=== PATIENT | male | born 1965 | race Caucasian/White ===

== ENCOUNTER 2023-11-08 15:15 | Inpatient (IN) | payer OTHER, MEDICAID, SELFPAY ==
[2023-11-08] VITALS (15 sets, daily range): BP systolic 131–171; BP diastolic 81–87; PULSE 56–96; RESP 16–18; TEMP 36.6–36.9; O2SAT 98–100; BMI 22.5
--- NOTE | 2023-11-08 | DI.RAD.S_ITS ---
PROCEDURE: XR FEMUR LT MIN 2V INDICATIONS: Evaluate full length of femur following hip fracture TECHNIQUE: 2 views of the femur were acquired. COMPARISON: [facility], AISHA, XR HIP W PEL IF DONE LT 2V, 11/08/2023, 15:29. FINDINGS: Bones: Nondisplaced intertrochanteric fracture of the left proximal femur again seen. The remainder of the femur appears to be intact. Soft tissues: No suspicious soft tissue calcifications or masses. IMPRESSION: Nondisplaced intertrochanteric fracture of the left proximal femur. Approved by: Kem Gonzalez M.D. on 11/08/2023 at 19:43
--- NOTE | 2023-11-08 15:22 | DI.RAD.S_ITS ---
PROCEDURE: XR HIP W PEL IF DONE LT 2V INDICATIONS: fall TECHNIQUE: AP pelvis with lateral view(s) of the left hip(s). COMPARISON: None. FINDINGS: Bones: No acute displaced fracture. Suspected nondisplaced intertrochanteric hip fracture. Soft tissues: Pelvic clips. Indeterminate hyperdensities project over lower pelvis/lower extremities. IMPRESSION: Suspected nondisplaced intertrochanteric hip fracture. Dictated by: Jerry Carlton M.D. on 11/08/2023 at 16:33 Approved by: Jerry Carlton M.D. on 11/08/2023 at 16:34
[2023-11-08] MEDS: ACETAMINOPHEN 325 MG TABLET 975 MG PO (16:28)
[2023-11-08 17:11] LABS: Add Manual Diff / Slide Review NO; Basophils Absolute Auto 100 /uL (0-100); Basophils Percent Auto 0.8 % (0-2); Eosinophils Absolute Auto 100 /uL (0-450); Eosinophils Percent Auto 1.2 % (2-4); Hematocrit 39.9 % (41-53); Hemoglobin 13.3 g/dL (13.5-17.5); Lymphocytes Absolute Auto 800 /uL (1100-4500); Lymphocytes Percent Auto 10.6 % (25-40); Mean Corpuscular HGB Conc 33.3 % (30-36); Mean Corpuscular Hemoglobin 34.4 PG (26-34); Mean Corpuscular Volume 103.4 fL (80-100); Monocytes Absolute Auto 500 /uL (0-900); Monocytes Percent Auto 6.7 % (3-14); Neutrophils Absolute Auto 6100 /uL (1500-7000); Neutrophils Percent Auto 80.7 % (50-75); Platelet Count 212 X10^3/uL (150-400); Red Blood Cell Count 3.86 X10^6/uL (4.5-5.9); Red Cell Distribution Width 14.2 % (11.6-14.8); White Blood Cell Count 7.6 X10^3/uL (4.5-11.0)
--- NOTE | 2023-11-08 17:19 | ED_ITS ---
HPI - Extremity Injury (Lower) General Chief Complaint: Extremity Injury, Lower Stated Complaint: Fall, L Hip Pain Time Seen by Provider: 11/08/23 16:55 Source: patient Mode of arrival: Ambulatory History of Present Illness HPI Narrative: Patient 58-year-old male without known medical history presenting today after fall off ladder. He reports that he was up on a ladder about 5-6 feet with a hose when he fell landing on his left side. He does have some facial contusions but no significant swelling denies hitting his head loss of conscious nausea or vomiting. Not on antiplatelet or anticoagulation medication. Really complaining of some left hip pain unable to bear weight. Denies any knee pain. No chest pain or other injuries. Related Data Home Medications Medication Instructions Recorded Confirmed No Known Home Medications 11/08/23 11/08/23 Allergies Allergy/AdvReac Type Severity Reaction Status Date / Time No Known Allergies Allergy Uncoded 11/08/23 15:21 Patient History Social History Smoking Status: Current every day smoker Smoking Status: Current every day smoker alcohol intake frequency: 0-2 drinks per day Alcohol type: beer Substance Use Type: marijuana Exam Initial Vital Signs Initial Vital Signs: Vital Signs Temperature 98 F 11/08/23 15:17 Pulse Rate 96 H 11/08/23 15:17 Respiratory Rate 18 11/08/23 15:17 Blood Pressure 143/87 H 11/08/23 15:17 Pulse Oximetry 98 11/08/23 15:17 Oxygen Delivery Method Room Air 11/08/23 15:17 GENERAL: [Well-appearing, well-nourished] and in [no acute] distress. HEENT: Head atraumatic,EOMI, pupils reactive, face symmetric, [moist] mucous membranes CARDIOVASCULAR: Regular rate and rhythm without murmurs, rubs or gallops. RESPIRATORY: Breath sounds equal bilaterally, no wheezes rales or rhonchi. ABDOMEN: Soft, nontender. Normoactive bowel sounds all 4 quadrants. No guarding or rebound. EXTREMITIES: Normal range of motion, no clubbing or edema. Neurovascularly intact NEUROLOGICAL: Alert and oriented x4.Normal gait and speech. Cranial nerves II through XII grossly intact. [Good [id number], good [id number], strength equal bilaterally, no dysarthria or aphasia, sensation in tact to soft touch bilaterally, no visual changes, no facial droop] SKIN: Warm, dry, no laceration, no petechiae, no rashes or lesions. Course Orders Ordered: ED Orders 11/08/23 15:22 XR hip w pel if done LT 2V Stat 11/08/23 17:00 Complete Blood Count AUTO DIFF Stat Comprehensive Metabolic Panel Stat PTT Partial Thromboplastin Dimas Stat Prothrombin Time INR Stat Type and Screen Stat 11/08/23 17:39 CT cervical spine wo con Stat CT head/brain wo con Stat Chest [XR chest 1V] Stat Discontinued Medications Acetaminophen (Acetaminophen 325 Mg Tablet) 975 mg PO NOW ONE Stop: 11/08/23 16:25 Last Admin: 11/08/23 16:28 Dose: 975 mg Documented By: Hydromorphone HCl (Hydromorphone 0.5 Mg Inj) 0.5 mg IV NOW ONE Stop: 11/08/23 16:56 Last Admin: 11/08/23 18:07 Dose: 0.5 mg Documented By: Vital Signs Vital signs: Vital Signs - 8 hr 11/08/23 15:17 11/08/23 16:01 11/08/23 16:02 Temperature 98 F Pulse Rate 96 H Respiratory Rate 18 Blood Pressure 143/87 H 142/85 H Pulse Oximetry 98 99 Oxygen Delivery Method Room Air 11/08/23 16:02 11/08/23 16:30 11/08/23 16:30 Temperature Pulse Rate 75 64 Respiratory Rate Blood Pressure 146/81 H Pulse Oximetry 100 100 Oxygen Delivery Method 11/08/23 17:00 11/08/23 17:01 11/08/23 17:01 Temperature Pulse Rate 65 76 Respiratory Rate Blood Pressure 159/86 H Pulse Oximetry 100 100 Oxygen Delivery Method 11/08/23 17:30 11/08/23 17:30 11/08/23 18:00 Temperature Pulse Rate 62 78 Respiratory Rate Blood Pressure 131/83 Pulse Oximetry 99 100 Oxygen Delivery Method 11/08/23 18:30 Temperature Pulse Rate 69 Respiratory Rate Blood Pressure Pulse Oximetry 99 Oxygen Delivery Method MDM - Extremity Injury (Lower) Lab Data 11/08/23 17:00 11/08/23 17:00 Labs: Lab Results 11/08/23 Range/Units 17:00 WBC 7.6 (4.5-11.0) X10^3/uL RBC 3.86 L (4.5-5.9) X10^6/uL Hgb 13.3 L (13.5-17.5) g/dL Hct 39.9 L (41-53) % MCV 103.4 H (80-100) fL MCH 34.4 H (26-34) PG MCHC 33.3 (30-36) % RDW 14.2 (11.6-14.8) % Plt Count 212 (150-400) X10^3/uL Neut % (Auto) 80.7 H (50-75) % Lymph % (Auto) 10.6 L (25-40) % [place] % (Auto) 6.7 (3-14) % Eos % (Auto) 1.2 L (2-4) % Baso % (Auto) 0.8 (0-2) % Neut # (Auto) 6100 (9130-0407) /uL Lymph # (Auto) 800 L (1566-3875) /uL [place] # (Auto) 500 (0-900) /uL Eos # (Auto) 100 (0-450) /uL Baso # (Auto) 100 (0-100) /uL PT 10.2 (9.4-12.5) SECONDS INR 0.9 (0.9-1.3) APTT 34 (25.1-36.5) SECONDS Sodium 141 (137-145) mmol/L Potassium 4.0 (3.4-5.1) mmol/L Chloride 108 H (98-107) mmol/L Carbon Dioxide 20 L (22-32) mmol/L BUN 6 L (9-20) mg/dL Creatinine 0.77 (0.66-1.25) mg/dL Estimated GFR > 60 (>60) mL/min BUN/Creatinine Ratio 7.8 (6-22) Glucose 87 (70-100) mg/dL Calcium 8.8 (8.4-10.2) mg/dL Total Bilirubin 0.5 (0.2-1.3) mg/dL AST 43 (17-59) IU/L ALT 27 (<50) IU/L Alkaline Phosphatase 39 (38-126) U/L Total Protein 6.8 (6.3-8.2) g/dL Albumin 4.5 (3.5-5.0) g/dL Globulin 2.3 (1.7-4.1) g/dL Albumin/Globulin Ratio 2.0 (1.0-2.8) Blood Type O Positive Antibody Screen Negative Imaging Data CT scan - head: Radiologist's Impression: PROCEDURE: CT HEAD/BRAIN WO CON INDICATIONS: fall off ladder TECHNIQUE: Noncontrast 4.5 mm thick angled axial sections acquired from the foramen magnum to the vertex, with coronal and sagittal reformats. For radiation dose reduction, the following was used: automated exposure control, adjustment of mA and/or kV according to patient size. COMPARISON: None. FINDINGS: Image quality: Diagnostic. CSF spaces: Basal cisterns are patent. No extra-axial fluid collections. The ventricles are symmetric in size and shape. Brain: No acute intracranial hemorrhage or mass effect. There is cerebral volume loss for age, with resultant ventricular and sulcal prominence. There are periventricular and deep white matter chronic small vessel ischemic changes. There is intracranial internal carotid artery atherosclerosis. Skull and face: Calvarium and visualized facial bones appear intact, without suspicious lesions. Sinuses: Visualized sinuses and mastoids are clear. IMPRESSION: No acute intracranial pathology. Approved by: Kem Gonzalez M.D. on 11/08/2023 at 18:38 CT - cervical spine: Radiologist's Impression: PROCEDURE: CT CERVICAL SPINE WO CON INDICATIONS: fall off ladder TECHNIQUE: Noncontrast 3 mm thick sections acquired from the skull base to the T4 level. Sagittal and coronal reformats were then constructed. For radiation dose reduction, the following was used: automated exposure control, adjustment of mA and/or kV according to patient size. COMPARISON: None. FINDINGS: Image quality: Excellent. Bones: No acute fractures or dislocations. Visualized superior ribs are intact. Moderate multilevel degenerative changes in the cervical spine with mild reversal of the normal cervical lordosis. Soft tissues: Prevertebral soft tissues are normal in thickness. No paravertebral hematomas. No apical pneumothoraces. Mild centrilobular emphysema. IMPRESSION: No acute displaced fracture or traumatic subluxation. Moderate multilevel spondylosis. Approved by: Kem Gonzalez M.D. on 11/08/2023 at 18:42 Extremity x-ray #1: Radiologist's Impression: PROCEDURE: XR HIP W PEL IF DONE LT 2V INDICATIONS: fall TECHNIQUE: AP pelvis with lateral view(s) of the left hip(s). COMPARISON: None. FINDINGS: Bones: No acute displaced fracture. Suspected nondisplaced intertrochanteric hip fracture. Soft tissues: Pelvic clips. Indeterminate hyperdensities project over lower pelvis/lower extremities. IMPRESSION: Suspected nondisplaced intertrochanteric hip fracture. Dictated by: Jerry Carlton M.D. on 11/08/2023 at 16:33 Chest x-ray: Radiologist's Impression: PROCEDURE: XR CHEST 1V INDICATIONS: fall off ladder TECHNIQUE: One view of the chest was acquired. COMPARISON: [facility], CHEST 2 VIEW, 06/20/2013, 15:50. FINDINGS: Surgical changes and devices: None. Lungs and pleura: Lungs are clear. No pleural effusions or pneumothorax. Mediastinum: Mediastinal contours appear normal. Heart size is normal. Bones and chest wall: No suspicious bony lesions. Overlying soft tissues appear unremarkable. IMPRESSION: No acute cardiopulmonary abnormality is seen. Approved by: Kem Gonzalez M.D. on 11/08/2023 at 19:07 [facility] Narrative Medical decision making narrative: Patient healthy 58-year-old male who had a traumatic fall 5-6 feet off a ladder found to have an intertrochanteric left femur fracture. Other imaging has also been reviewed including head CT cervical spine CT chest x-ray no other acute processes. Chest x-ray does not show any sort of pneumothorax On exam patient does have pain in his left hip , couple contusions on his left cheek as well but no significant swelling or facial lacerations or trauma. Blood work has been reviewed no acute abnormalities Dr. Villagomez updated on patient's symptoms test results will likely go to OR tomorrow 1850 Dr. Tinsley updated on trauma consultation ring regards to fall Dr. Ennis accepts patient Discharge Plan Departure Patient Disposition: Admitted As Inpatient Clinical Impression: Closed hip fracture Admit Date/Time: 11/08/23 18:56 Admit Provider: Stephen Ennis
[2023-11-08 17:21] LABS: INR 0.9 (0.9-1.3); Prothrombin Time 10.2 SECONDS (9.4-12.5)
[2023-11-08 17:23] LABS: PTT Partial Thromboplastin Tim 34 SECONDS (25.1-36.5)
[2023-11-08 17:26] LABS: Alanine Aminotransferase 27 IU/L (<50); Albumin 4.5 g/dL (3.5-5.0); Alkaline Phosphatase 39 U/L (38-126); Aspartate Aminotransferase 43 IU/L (17-59); BUN Creatinine Ratio 7.8 (6-22); Bilirubin Total 0.5 mg/dL (0.2-1.3); Blood Urea Nitrogen 6 mg/dL (9-20); Calcium 8.8 mg/dL (8.4-10.2); Carbon Dioxide 20 mmol/L (22-32); Chloride 108 mmol/L (98-107); Estimated Glomerular Filt Rate > 60 mL/min (>60); Globulin 2.3 g/dL (1.7-4.1); Glucose 87 mg/dL (70-100); HEMOLYSIS 21 (0-50); Sodium 141 mmol/L (137-145); Total Protein 6.8 g/dL (6.3-8.2)
--- NOTE | 2023-11-08 17:39 | DI.CT.S_ITS ---
PROCEDURE: CT CERVICAL SPINE WO CON INDICATIONS: fall off ladder TECHNIQUE: Noncontrast 3 mm thick sections acquired from the skull base to the T4 level. Sagittal and coronal reformats were then constructed. For radiation dose reduction, the following was used: automated exposure control, adjustment of mA and/or kV according to patient size. COMPARISON: None. FINDINGS: Image quality: Excellent. Bones: No acute fractures or dislocations. Visualized superior ribs are intact. Moderate multilevel degenerative changes in the cervical spine with mild reversal of the normal cervical lordosis. Soft tissues: Prevertebral soft tissues are normal in thickness. No paravertebral hematomas. No apical pneumothoraces. Mild centrilobular emphysema. IMPRESSION: No acute displaced fracture or traumatic subluxation. Moderate multilevel spondylosis. Approved by: Kem Gonzalez M.D. on 11/08/2023 at 18:42
--- NOTE | 2023-11-08 17:39 | DI.CT.S_ITS ---
PROCEDURE: CT HEAD/BRAIN WO CON INDICATIONS: fall off ladder TECHNIQUE: Noncontrast 4.5 mm thick angled axial sections acquired from the foramen magnum to the vertex, with coronal and sagittal reformats. For radiation dose reduction, the following was used: automated exposure control, adjustment of mA and/or kV according to patient size. COMPARISON: None. FINDINGS: Image quality: Diagnostic. CSF spaces: Basal cisterns are patent. No extra-axial fluid collections. The ventricles are symmetric in size and shape. Brain: No acute intracranial hemorrhage or mass effect. There is cerebral volume loss for age, with resultant ventricular and sulcal prominence. There are periventricular and deep white matter chronic small vessel ischemic changes. There is intracranial internal carotid artery atherosclerosis. Skull and face: Calvarium and visualized facial bones appear intact, without suspicious lesions. Sinuses: Visualized sinuses and mastoids are clear. IMPRESSION: No acute intracranial pathology. Approved by: Kem Gonzalez M.D. on 11/08/2023 at 18:38
--- NOTE | 2023-11-08 17:39 | DI.RAD.S_ITS ---
PROCEDURE: XR CHEST 1V INDICATIONS: fall off ladder TECHNIQUE: One view of the chest was acquired. COMPARISON: [facility], , CHEST 2 VIEW, 06/20/2013, 15:50. FINDINGS: Surgical changes and devices: None. Lungs and pleura: Lungs are clear. No pleural effusions or pneumothorax. Mediastinum: Mediastinal contours appear normal. Heart size is normal. Bones and chest wall: No suspicious bony lesions. Overlying soft tissues appear unremarkable. IMPRESSION: No acute cardiopulmonary abnormality is seen. Approved by: Kem Gonzalez M.D. on 11/08/2023 at 19:07
[2023-11-08] MEDS: HYDROMORPHONE 0.5 MG INJ IV ×4 (18:07→22:19)
--- NOTE | 2023-11-08 20:45 | ED.LOWEXIN ---
HPI - Extremity Injury (Lower) General Chief Complaint: Extremity Injury, Lower Stated Complaint: Fall, L Hip Pain Time Seen by Provider: 11/08/23 17:15 Source: patient Mode of arrival: Ambulatory Related Data Home Medications Medication Instructions Recorded Confirmed No Known Home Medications 11/08/23 11/08/23 Allergies Allergy/AdvReac Type Severity Reaction Status Date / Time No Known Allergies Allergy Uncoded 11/08/23 15:21 Patient History Social History Smoking Status: Current every day smoker Smoking Status: Current every day smoker alcohol intake frequency: 0-2 drinks per day Alcohol type: beer Substance Use Type: marijuana Exam Initial Vital Signs Initial Vital Signs: Vital Signs Temperature 98 F 11/08/23 15:17 Pulse Rate 96 H 11/08/23 15:17 Respiratory Rate 18 11/08/23 15:17 Blood Pressure 143/87 H 11/08/23 15:17 Pulse Oximetry 98 11/08/23 15:17 Oxygen Delivery Method Room Air 11/08/23 15:17 Course Orders Ordered: ED Orders 11/08/23 15:22 XR hip w pel if done LT 2V Stat 11/08/23 17:00 Complete Blood Count AUTO DIFF Stat Comprehensive Metabolic Panel Stat PTT Partial Thromboplastin Dim[place] Stat Prothrombin Time INR Stat Type and Screen Stat 11/08/23 17:39 CT cervical spine wo con Stat CT head/brain wo con Stat Chest [XR chest 1V] Stat Acetaminophen (Acetaminophen 325 Mg Tablet) 650 mg PO Q6H PRN PRN Reason: Fever/Mild Pain (1-3) Hydromorphone HCl (Hydromorphone 0.5 Mg Inj) 0.5 mg IV Q2H PRN PRN Reason: Pain, Severe (7-10) Last Admin: 11/08/23 20:24 Dose: 0.5 mg Documented By: Admin: 11/08/23 20:09 Dose: 0.5 mg Documented By: ASHLEY Naloxone HCl (Naloxone 0.4 Mg/Ml Vial) 0.2 mg IV Q2MIN PRN PRN Reason: Opiate Reversal Ondansetron HCl (Ondansetron 4 Mg/2 Ml Inj) 4 mg IV Q8HR PRN PRN Reason: Nausea And Vomiting Oxycodone HCl (Oxycodone Ir 5 Mg Tablet) 5 mg PO Q3H PRN PRN Reason: Pain, Moderate (4-6) Discontinued Medications Acetaminophen (Acetaminophen 325 Mg Tablet) 975 mg PO NOW ONE Stop: 11/08/23 16:25 Last Admin: 11/08/23 16:28 Dose: 975 mg Documented By: Hydromorphone HCl (Hydromorphone 0.5 Mg Inj) 0.5 mg IV NOW ONE Stop: 11/08/23 16:56 Last Admin: 11/08/23 18:07 Dose: 0.5 mg Documented By: Vital Signs Vital signs: Vital Signs - 8 hr 11/08/23 15:17 11/08/23 16:01 11/08/23 16:02 Temperature 98 F Pulse Rate 96 H Respiratory Rate 18 Blood Pressure 143/87 H 142/85 H Pulse Oximetry 98 99 Oxygen Delivery Method Room Air 11/08/23 16:02 11/08/23 16:30 11/08/23 16:30 Temperature Pulse Rate 75 64 Respiratory Rate Blood Pressure 146/81 H Pulse Oximetry 100 100 Oxygen Delivery Method 11/08/23 17:00 11/08/23 17:01 11/08/23 17:01 Temperature Pulse Rate 65 76 Respiratory Rate Blood Pressure 159/86 H Pulse Oximetry 100 100 Oxygen Delivery Method 11/08/23 17:30 11/08/23 17:30 11/08/23 18:00 Temperature Pulse Rate 62 78 Respiratory Rate Blood Pressure 131/83 Pulse Oximetry 99 100 Oxygen Delivery Method 11/08/23 18:30 Temperature Pulse Rate 69 Respiratory Rate Blood Pressure Pulse Oximetry 99 Oxygen Delivery Method MDM - Extremity Injury (Lower) Lab Data 11/08/23 17:00 11/08/23 17:00 Labs: Lab Results 11/08/23 Range/Units 17:00 WBC 7.6 (4.5-11.0) X10^3/uL RBC 3.86 L (4.5-5.9) X10^6/uL Hgb 13.3 L (13.5-17.5) g/dL Hct 39.9 L (41-53) % MCV 103.4 H (80-100) fL MCH 34.4 H (26-34) PG MCHC 33.3 (30-36) % RDW 14.2 (11.6-14.8) % Plt Count 212 (150-400) X10^3/uL Neut % (Auto) 80.7 H (50-75) % Lymph % (Auto) 10.6 L (25-40) % [place] % (Auto) 6.7 (3-14) % Eos % (Auto) 1.2 L (2-4) % Baso % (Auto) 0.8 (0-2) % Neut # (Auto) 6100 (3047-6065) /uL Lymph # (Auto) 800 L (5806-0431) /uL [place] # (Auto) 500 (0-900) /uL Eos # (Auto) 100 (0-450) /uL Baso # (Auto) 100 (0-100) /uL PT 10.2 (9.4-12.5) SECONDS INR 0.9 (0.9-1.3) APTT 34 (25.1-36.5) SECONDS Sodium 141 (137-145) mmol/L Potassium 4.0 (3.4-5.1) mmol/L Chloride 108 H (98-107) mmol/L Carbon Dioxide 20 L (22-32) mmol/L BUN 6 L (9-20) mg/dL Creatinine 0.77 (0.66-1.25) mg/dL Estimated GFR > 60 (>60) mL/min BUN/Creatinine Ratio 7.8 (6-22) Glucose 87 (70-100) mg/dL Calcium 8.8 (8.4-10.2) mg/dL Total Bilirubin 0.5 (0.2-1.3) mg/dL AST 43 (17-59) IU/L ALT 27 (<50) IU/L Alkaline Phosphatase 39 (38-126) U/L Total Protein 6.8 (6.3-8.2) g/dL Albumin 4.5 (3.5-5.0) g/dL Globulin 2.3 (1.7-4.1) g/dL Albumin/Globulin Ratio 2.0 (1.0-2.8) Blood Type O Positive Antibody Screen Negative Discharge Plan Departure Patient Disposition: Admitted As Inpatient Clinical Impression: Closed hip fracture
--- NOTE | 2023-11-08 21:02 | P.HP_ITS ---
History of Present Illness History of Present Illness Date Patient Seen: 11/08/23 Time Patient Seen: 20:05 Chief complaint: Fall, L Hip Pain Narrative: 58 years old male chronic smoker with apparent no medical issues was found to the emergency room status post fall about 5 to 6 feet with a horse when he fell landing on his left side with the significant facial contusions. Denies loss of consciousness. Denies any chest pain or shortness of breath. Denies any nausea or vomiting. Able to move his extremity. Not on any blood thinners. Subsequent evaluation in the emergency room showed a hemoglobin of 13.3 with a sodium of [address] brain shows no acute process. CT cervical spine shows no acute process. X-ray of the hip and pelvis shows suspected nondisplaced intertrochanteric hip fracture on the left side. Chest x-ray shows no pneumothorax. Orthopedics?Dr. Morley was consulted and patient was admitted for further evaluation [facility] Social History household members: family Smoking Status: Current every day smoker alcohol intake: current Meds Home Medications and Allergies Home Medications Medication Instructions Recorded Confirmed Type No Known Home Medications 11/08/23 11/08/23 History Allergies Allergy/AdvReac Type Severity Reaction Status Date / Time No Known Allergies Allergy Uncoded 11/08/23 15:21 Review of Systems Review of Systems Narrative: A 12 point review of system is negative unless otherwise stated in history of present illness Exam Vital Signs (past 8 hours): - 11/08/23 15:17 11/08/23 16:01 11/08/23 16:02 Temperature 98 F Pulse Rate 96 H Respiratory Rate 18 Blood Pressure 143/87 H 142/85 H Pulse Oximetry 98 99 Oxygen Delivery Method Room Air 11/08/23 16:02 11/08/23 16:30 11/08/23 16:30 Temperature Pulse Rate 75 64 Respiratory Rate Blood Pressure 146/81 H Pulse Oximetry 100 100 Oxygen Delivery Method 11/08/23 17:00 11/08/23 17:01 11/08/23 17:01 Temperature Pulse Rate 65 76 Respiratory Rate Blood Pressure 159/86 H Pulse Oximetry 100 100 Oxygen Delivery Method 11/08/23 17:30 11/08/23 17:30 11/08/23 18:00 Temperature Pulse Rate 62 78 Respiratory Rate Blood Pressure 131/83 Pulse Oximetry 99 100 Oxygen Delivery Method 11/08/23 18:30 11/08/23 19:00 11/08/23 19:30 Temperature Pulse Rate 69 56 L 60 Respiratory Rate 18 Blood Pressure Pulse Oximetry 99 99 98 Oxygen Delivery Method 11/08/23 19:54 11/08/23 19:54 11/08/23 20:00 Temperature Pulse Rate 79 76 Respiratory Rate 18 Blood Pressure 144/81 H Pulse Oximetry 99 99 Oxygen Delivery Method 11/08/23 20:37 Temperature Pulse Rate Respiratory Rate Blood Pressure Pulse Oximetry 98 Oxygen Delivery Method Room Air Oxygen Delivery Method Room Air Narrative Exam Narrative: Patient is awake and does appear to be in pain Decreased ROM Left hip Air entry equal B/L . NO wheeze Objective Labs 11/08/23 17:00 11/08/23 17:00 Labs: Laboratory Results - last 24 hr 11/08/23 17:00 WBC 7.6 RBC 3.86 L Hgb 13.3 L Hct 39.9 L MCV 103.4 H MCH 34.4 H MCHC 33.3 RDW 14.2 Plt Count 212 Neut % (Auto) 80.7 H Lymph % (Auto) 10.6 L [place] % (Auto) 6.7 Eos % (Auto) 1.2 L Baso % (Auto) 0.8 Neut # (Auto) 6100 Lymph # (Auto) 800 L [place] # (Auto) 500 Eos # (Auto) 100 Baso # (Auto) 100 PT 10.2 INR 0.9 APTT 34 Sodium 141 Potassium 4.0 Chloride 108 H Carbon Dioxide 20 L BUN 6 L Creatinine 0.77 Estimated GFR > 60 BUN/Creatinine Ratio 7.8 Glucose 87 Calcium 8.8 Total Bilirubin 0.5 AST 43 ALT 27 Alkaline Phosphatase 39 Total Protein 6.8 Albumin 4.5 Globulin 2.3 Albumin/Globulin Ratio 2.0 Blood Type O Positive Antibody Screen Negative Assessment & Plan Assessment & Plan narrative: 58 years old male chronic smoker with apparent no medical issues was found to the emergency room status post fall about 5 to 6 feet with a horse when he fell landing on his left side with the significant facial contusions. Denies loss of consciousness. Denies any chest pain or shortness of breath. Denies any nausea or vomiting. Able to move his extremity. Not on any blood thinners. Subsequent evaluation in the emergency room showed a hemoglobin of 13.3 with a sodium of [address] brain shows no acute process. CT cervical spine shows no acute process. X-ray of the hip and pelvis shows suspected nondisplaced intertrochanteric hip fracture on the left side. Chest x-ray shows no pneumothorax. Orthopedics?Dr. Morley was consulted and patient was admitted for further evaluation 1. Status post fall with left hip fracture. It is a mechanical fall. Denies any cardiac or respiratory symptoms. Denies any chest pain or shortness of breath. Denies any medical issues. Vitals are stable at this time and medically optimized for surgery. Has a history of smoking and will monitor the O2 saturation 2 Alcohol use. No evidence of withdrawal or intoxication. Monitor for now. Add vitamin B1 3 GI prophylaxis will be Protonix 4 DVT prophylaxis will be with SCDs. Anticoagulation will be per orthopedics 5 Smoker. Advised to quit smoking and initiate nicotine patch Patient will be admitted under inpatient status given the hip fracture and the need for likely surgical intervention with expected length of stay greater than 2 midnights Quality VTE Deep Vein Thrombosis/Pulmonary Embolism Present on Admission: No
[2023-11-08] MEDS: OXYCODONE IR 5 MG TABLET PO ×2 (21:13→23:56)
[2023-11-09] VITALS (15 sets, daily range): BP systolic 111–174; BP diastolic 62–97; PULSE 62–110; RESP 12–19; TEMP 35.9–37.5; O2SAT 97–100; BMI 22.5
--- NOTE | 2023-11-09 | DI.RAD.S_ITS ---
PROCEDURE: XR HIP W PEL IF DONE LT 2V INDICATIONS: IM NAILING INTRA TECHNIQUE: Intraoperative views of the left hip. COMPARISON: [facility], CR, XR HIP W PEL IF DONE LT 2V, 11/08/2023, 15:29. FINDINGS: Bones: Intraoperative views during fixation of a left intertrochanteric fracture. Hardware appears intact IMPRESSION: Intraoperative views during fixation of a left intertrochanteric fracture. Hardware appears intact. Dictated by: Kehinde Nicole M.D. on 11/09/2023 at 17:27 Approved by: Kehinde Nicole M.D. on 11/09/2023 at 17:27
[2023-11-09] MEDS: HYDROMORPHONE 0.5 MG INJ IV ×4 (00:22→13:42)
[2023-11-09 01:02] LABS: MRSA (Nasal) PCR NOT DETECTED (Not Detect)
[2023-11-09] MEDS: OXYCODONE IR 5 MG TABLET PO ×6 (02:45→23:24)
[2023-11-09 05:15] LABS: Add Manual Diff / Slide Review NO; Basophils Absolute Auto 100 /uL (0-100); Basophils Percent Auto 0.8 % (0-2); Eosinophils Absolute Auto 100 /uL (0-450); Eosinophils Percent Auto 1.3 % (2-4); Hematocrit 37.3 % (41-53); Hemoglobin 12.7 g/dL (13.5-17.5); Lymphocytes Absolute Auto 1000 /uL (1100-4500); Lymphocytes Percent Auto 13.2 % (25-40); Mean Corpuscular HGB Conc 34.1 % (30-36); Mean Corpuscular Hemoglobin 34.7 PG (26-34); Mean Corpuscular Volume 101.9 fL (80-100); Monocytes Absolute Auto 900 /uL (0-900); Monocytes Percent Auto 10.9 % (3-14); Neutrophils Absolute Auto 5800 /uL (1500-7000); Neutrophils Percent Auto 73.8 % (50-75); Platelet Count 206 X10^3/uL (150-400); Red Blood Cell Count 3.66 X10^6/uL (4.5-5.9); Red Cell Distribution Width 14.6 % (11.6-14.8); White Blood Cell Count 7.8 X10^3/uL (4.5-11.0)
[2023-11-09 05:29] LABS: BUN Creatinine Ratio 8.8 (6-22); Blood Urea Nitrogen 7 mg/dL (9-20); Calcium 8.6 mg/dL (8.4-10.2); Carbon Dioxide 23 mmol/L (22-32); Chloride 109 mmol/L (98-107); Estimated Glomerular Filt Rate > 60 mL/min (>60); Glucose 90 mg/dL (70-100); HEMOLYSIS < 15 (0-50); Magnesium 2.2 mg/dL (1.6-2.3); Potassium 4.1 mmol/L (3.4-5.1); Sodium 139 mmol/L (137-145)
[2023-11-09] MEDS: ACETAMINOPHEN 325 MG TABLET 650 MG PO ×2 (08:58→20:13)
[2023-11-09] MEDS: NICOTINE 14 PATCH 14 MG TOP (09:00)
--- NOTE | 2023-11-09 11:02 | CM.DANOTE ---
Initial DCP Assessment Visit Note Reviewed EMR and team rounds for pt's medical status and updates. Met with pt at bedside to introduce self and role, pt was found to be alert/oriented, and able to discuss his questions/concerns and plan for d/c. Pt resides independently with his brother at the [facility] here in [place]. He arrived to the ED via EMS, so will need a taxi voucher for the ride home. He does not have a PCP, has not seen a doctor in years. D/c plan is back to the formerly [facility] w/assistance. Payor: Lucian Attending: Hospitalist Ortho: Dr. Downing Pt is a 58 year-old M who arrived via EMS to the ED yesterday evening after falling off of a ladder and landing on his left hip, resulting in a fracture. Dr. Downing was consulted, and the plan was made to admit pt NPO for planned surgery for today. PT/OT evals and recommendations pending, however he will most likely d/c back home, with OP Surgery f/u postoperatively. DCP will continue to follow and assist with any further evolving needs/support/resources prior to d/c. Discharge Planning/Care Management CM Discharge Assessment Start: 11/09/23 10:55 Freq: Status: Active Protocol: Document 11/09/23 10:55 DPL (Rec: 11/09/23 11:02 DPL [id number]) Discharge Planning Assessment Assigned [employer] CHRISSIE Gilliam Advance Directives? No History Provided By Patient,Medical Record Has Patient been admitted in last 30 No days? Prior Living Arrangements Other Comment [facility] Household Members family Comment Brother Type of transporation used prior to Public Transportation admit Independent with ADL's Yes Is patient alert and oriented? Yes Caregiver for Another No Comment No anticipated home d/c needs at this time. Barriers to Discharge Yes Comment Lives in a motel with stairs, has no cg, financial insecurity, will need taxi home. No PCP. Discharge Plan Home Transportation Arrangement Taxi Referrals Initiated None needed Whiteboard Updated in Patient Room with Yes name and ext. # of [employer] Review Status In Process Please Provide Date Initial DC 11/09/23 Assessment Was Performed
--- NOTE | 2023-11-09 12:48 | P.CONS_ITS ---
History of Present Illness Consult details Date Patient Seen: 11/09/23 Time Patient Seen: 12:49 Chief complaint: Fall, L Hip Pain Narrative: Aneesh is a 58-year-old man who presented to the emergency department yesterday after falling from a ladder. He estimates he was about 5 or 6 ft off the ground. He landed on his left side. He scraped his face but did not lose consciousness. His chief complaint is left hip pain. In the ER he had a CT scan of the head and C-spine which were normal. He had a chest x-ray which showed no acute rib fractures. He had a pelvic x-ray which showed a left trochanteric fracture. Dr. Downing has him on the schedule for a surgery today. Meds Home Medications and Allergies Home Medications Medication Instructions Recorded Confirmed Type No Known Home Medications 11/08/23 11/08/23 History Allergies Allergy/AdvReac Type Severity Reaction Status Date / Time No Known Allergies Allergy Uncoded 11/08/23 15:21 Exam Vital Signs (past 8 hours): - 11/09/23 08:00 11/09/23 08:30 11/09/23 12:00 Temperature 98.5 F 98.5 F Pulse Rate 87 94 H Respiratory Rate 16 12 Blood Pressure 160/70 H 174/88 H Pulse Oximetry 99 99 Oxygen Delivery Method Room Air Oxygen Flow Rate 0 0 Oxygen Delivery Method Room Air Oxygen Flow Rate 0 Narrative Exam Narrative: Left-sided facial abrasions Const General: No acute distress Resp Effort & Inspection: normal respiratory effort GI Palpation: soft Objective Labs 11/09/23 04:45 11/09/23 04:45 Labs: Laboratory Results - last 24 hr 11/08/23 11/08/23 11/09/23 17:00 23:25 04:45 WBC 7.6 7.8 RBC 3.86 L 3.66 L Hgb 13.3 L 12.7 L Hct 39.9 L 37.3 L MCV 103.4 H 101.9 H MCH 34.4 H 34.7 H MCHC 33.3 34.1 RDW 14.2 14.6 Plt Count 212 206 Neut % (Auto) 80.7 H 73.8 Lymph % (Auto) 10.6 L 13.2 L Parker % (Auto) 6.7 10.9 Eos % (Auto) 1.2 L 1.3 L Baso % (Auto) 0.8 0.8 Neut # (Auto) 6100 5800 Lymph # (Auto) 800 L 1000 L Parker # (Auto) 500 900 Eos # (Auto) 100 100 Baso # (Auto) 100 100 PT 10.2 INR 0.9 APTT 34 Sodium 141 139 Potassium 4.0 4.1 Chloride 108 H 109 H Carbon Dioxide 20 L 23 BUN 6 L 7 L Creatinine 0.77 0.80 Estimated GFR > 60 > 60 BUN/Creatinine Ratio 7.8 8.8 Glucose 87 90 Calcium 8.8 8.6 Magnesium 2.2 Total Bilirubin 0.5 AST 43 ALT 27 Alkaline Phosphatase 39 Total Protein 6.8 Albumin 4.5 Globulin 2.3 Albumin/Globulin Ratio 2.0 Nasal Screen MRSA (PCR) Not detected Blood Type O Positive Antibody Screen Negative [facility] Social History household members: family Tobacco & Substance Use Smoking Status: Current every day smoker alcohol intake: current Assessment & Plan Assessment and plan (1) Closed hip fracture: Qualifiers: Encounter type: initial encounter Laterality: left Qualified Code(s): S72.002A - Fracture of unspecified part of neck of left femur, initial encounter for closed fracture Status: Acute Plan Aneesh is cleared for hip surgery with Dr. Downing today. No other acute traumatic injuries need to be addressed. Please re-consult on-call General surgery if any other surgical issues arise.
--- NOTE | 2023-11-09 13:23 | PM.PN.1 ---
Subjective Subjective Interval history: 58 M with PMH of EtOH use, admitted after a fall off a ladder with a left hip fracture. No other injuries noted, patient seen by trauma service with no further recommendations. Plan for operative repair of his fracture today. No history of alcohol withdrawal in the past. Exam Vital Signs (past 8 hours): - 11/09/23 08:00 11/09/23 08:30 11/09/23 12:00 Temperature 98.5 F 98.5 F Pulse Rate 87 94 H Respiratory Rate 16 12 Blood Pressure 160/70 H 174/88 H Pulse Oximetry 99 99 Oxygen Delivery Method Room Air Oxygen Flow Rate 0 0 Oxygen Delivery Method Room Air Oxygen Flow Rate 0 Narrative Exam Narrative: Gen: Alert, no acute distress, WDWN HEENT: Some facial abrasions, with bandaids and mild bruising. CV RRR Pulm CTA b/l Ext: no edema Objective Labs 11/09/23 04:45 11/09/23 04:45 Labs: Laboratory Results - last 24 hr 11/08/23 11/08/23 11/09/23 17:00 23:25 04:45 WBC 7.6 7.8 RBC 3.86 L 3.66 L Hgb 13.3 L 12.7 L Hct 39.9 L 37.3 L MCV 103.4 H 101.9 H MCH 34.4 H 34.7 H MCHC 33.3 34.1 RDW 14.2 14.6 Plt Count 212 206 Neut % (Auto) 80.7 H 73.8 Lymph % (Auto) 10.6 L 13.2 L [place] % (Auto) 6.7 10.9 Eos % (Auto) 1.2 L 1.3 L Baso % (Auto) 0.8 0.8 Neut # (Auto) 6100 5800 Lymph # (Auto) 800 L 1000 L [place] # (Auto) 500 900 Eos # (Auto) 100 100 Baso # (Auto) 100 100 PT 10.2 INR 0.9 APTT 34 Sodium 141 139 Potassium 4.0 4.1 Chloride 108 H 109 H Carbon Dioxide 20 L 23 BUN 6 L 7 L Creatinine 0.77 0.80 Estimated GFR > 60 > 60 BUN/Creatinine Ratio 7.8 8.8 Glucose 87 90 Calcium 8.8 8.6 Magnesium 2.2 Total Bilirubin 0.5 AST 43 ALT 27 Alkaline Phosphatase 39 Total Protein 6.8 Albumin 4.5 Globulin 2.3 Albumin/Globulin Ratio 2.0 Nasal Screen MRSA (PCR) Not detected Blood Type O Positive Antibody Screen Negative PFSH Social History household members: family Smoking Status: Current every day smoker alcohol intake: current Assessment & Plan Assessment & Plan narrative: 58 years old male chronic smoker with apparent no medical issues was found to the emergency room status post fall about 5 to 6 feet with a horse when he fell landing on his left side with the significant facial contusions found to have a left intertrochanteric femur fracture, with orthopedic service performing operative repair planned for today. 1. Trauamatic left intertrochanteric femure fracture after a fall from a ladder. - OR today with orthopedics - Appreciate trauma consultation, no further interventions needed - patient appears medically optimized prior to surgery - mild anemia on labs will continue to follow. 2 Alcohol use. No evidence of withdrawal or intoxication. Monitor for now. Add vitamin B1 3 Smoker. Advised to quit smoking and initiate nicotine patch Dispo: inpatient, will likely discharge home once ready after surgical repair and evaluation by therapies. Code: Full DVT: SCDs, asa BID or Lovenox daily after surgery per orthopedics Quality VTE Deep Vein Thrombosis/Pulmonary Embolism Present on Admission: No
--- NOTE | 2023-11-09 14:39 | PC.NURSE ---
Day Shift Pt down for surgery at this time.
--- NOTE | 2023-11-09 15:01 | PM.HP.1 ---
History of Present Illness History of Present Illness Chief complaint: Fall, L Hip Pain Narrative: 58-year-old male seen in evaluation for his left hip. He was approximately 6 ft on a ladder when he fell. He says he was helping a friend clean a RV. 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 He denies any drug use other than marijuana. He has had pain in his left hip since he fell. The pain is worsened by any movement and partially alleviated by rest. It does not radiate. It has been present since the time of injury. He was evaluated and determined to be medically appropriate for proceeding with surgery today. [facility] Social History household members: family Smoking Status: Current every day smoker alcohol intake: current Meds Home Medications and Allergies Home Medications Medication Instructions Recorded Confirmed Type No Known Home Medications 11/08/23 11/08/23 History Allergies Allergy/AdvReac Type Severity Reaction Status Date / Time No Known Allergies Allergy Uncoded 11/09/23 14:44 Review of Systems Review of Systems ROS: Yes All systems reviewed with the patient and are negative except as otherwise documented Exam Vital Signs (past 8 hours): - 11/09/23 08:00 11/09/23 08:30 11/09/23 12:00 Temperature 98.5 F 98.5 F Pulse Rate 87 94 H Respiratory Rate 16 12 Blood Pressure 160/70 H 174/88 H Pulse Oximetry 99 99 Oxygen Delivery Method Room Air Oxygen Flow Rate 0 0 11/09/23 14:46 Temperature 99.5 F Pulse Rate 80 Respiratory Rate 16 Blood Pressure 152/97 H Pulse Oximetry 97 Oxygen Delivery Method Room Air Oxygen Flow Rate Oxygen Delivery Method Room Air Oxygen Flow Rate 0 Narrative Exam Narrative: Left lower extremity examination demonstrates swelling present the thigh. Sensation intact to light touch in L2 through S1 nerve distributions. Flexes and extends hallux and ankle. Const General: cooperative Orientation: alert and awake HENNE Head: normal to inspection Ears: hearing grossly normal bilaterally Eyes General: appearance normal, both eyes and all related structures Neck Neck: normal visual inspection Resp Effort & Inspection: normal respiratory effort and able to speak in complete sentences Cardio Pulses: other (peripheral pulses present) Skin Lesions: no lesions Rashes: no rashes Neuro General: patient alert, patient awake and moves all extremities Psych Appearance: grossly normal Objective Imaging Pelvis in left hip x-rays: My impression: Intertrochanteric left femur fracture Labs 11/09/23 04:45 11/09/23 04:45 Labs: Laboratory Results - last 24 hr 11/08/23 11/08/23 11/09/23 17:00 23:25 04:45 WBC 7.6 7.8 RBC 3.86 L 3.66 L Hgb 13.3 L 12.7 L Hct 39.9 L 37.3 L MCV 103.4 H 101.9 H MCH 34.4 H 34.7 H MCHC 33.3 34.1 RDW 14.2 14.6 Plt Count 212 206 Neut % (Auto) 80.7 H 73.8 Lymph % (Auto) 10.6 L 13.2 L [place] % (Auto) 6.7 10.9 Eos % (Auto) 1.2 L 1.3 L Baso % (Auto) 0.8 0.8 Neut # (Auto) 6100 5800 Lymph # (Auto) 800 L 1000 L [place] # (Auto) 500 900 Eos # (Auto) 100 100 Baso # (Auto) 100 100 PT 10.2 INR 0.9 APTT 34 Sodium 141 139 Potassium 4.0 4.1 Chloride 108 H 109 H Carbon Dioxide 20 L 23 BUN 6 L 7 L Creatinine 0.77 0.80 Estimated GFR > 60 > 60 BUN/Creatinine Ratio 7.8 8.8 Glucose 87 90 Calcium 8.8 8.6 Magnesium 2.2 Total Bilirubin 0.5 AST 43 ALT 27 Alkaline Phosphatase 39 Total Protein 6.8 Albumin 4.5 Globulin 2.3 Albumin/Globulin Ratio 2.0 Nasal Screen MRSA (PCR) Not detected Blood Type O Positive Antibody Screen Negative Assessment & Plan Assessment and plan (1) Closed hip fracture: Qualifiers: Encounter type: initial encounter Laterality: left Qualified Code(s): S72.002A - Fracture of unspecified part of neck of left femur, initial encounter for closed fracture Status: Acute Plan Plan to proceed with intramedullary nailing today. Patient counseled regarding risks and benefits of the procedure. Specific risks I discussed with him included nonunion, infection, medical complications around the time of surgery, damage to surrounding structures. He has a smoker and also uses marijuana. I strongly counseled him to stop smoking for the duration of his fracture healing at a minimum and to avoid any combustible formulations of marijuana as well. Understanding the risks of surgery and the benefits to his mobility following fracture fixation he wished to proceed. Informed consent was signed. The operative site was marked. Quality VTE Deep Vein Thrombosis/Pulmonary Embolism Present on Admission: No
[2023-11-09] MEDS: LACTATED RINGERS 1,000 ML 42 ML IV (15:05)
[2023-11-09] MEDS: CEFAZOLIN 2 GM/100 ML PREMIX 100 ML IV (15:45)
--- NOTE | 2023-11-09 16:01 | SUR.OPER ---
Head on pillow. Supine on fracture table with operative leg secured in traction. Other leg secured in padded stirrup. Arms across chest, secured with sheet.
[2023-11-09] MEDS: BUPIVACAINE 0.25% (PF) 30 ML, EPINEPHrine 0.15 MG INJ (16:08)
[2023-11-09] MEDS: VANCOMYCIN 1,000 MG VIAL 1000 MG TOP (16:09)
--- NOTE | 2023-11-09 16:47 | P.OP_ITS ---
Operative Date/Time/Diagnoses Date of procedure: 11/09/23 Pre-op diagnosis: Intertrochanteric left femur fracture Post-op diagnosis: same Procedure & Clinicians Procedure: Intramedullary nailing of intertrochanteric left femur fracture Same procedure as scheduled: Yes Surgeon: Alexandru Downing Click Yes if Unassisted: Yes Anesthesia Type: Spinal, MAC +/- and Local Operative Notes Estimated Blood Loss (mL): 150 Procedure in detail: Left Hip Intramedullary Nailing for Intertrochanteric Femur Fracture Implants: * Aceves [employer] Nephew 10 mm x 20 cm InterTAN nail * 110 mm proximal lag screw * 105 mm proximal compression screw * 35 mm distal interlocking screw Procedure in detail: This patient presented to the hospital for hip pain and was found to have an intertrochanteric femur fracture on radiographic evaluation in the emergency department. ?As the on-call orthopedic surgeon I was consulted for management. ?The patient was admitted to the medicine service here at [facility] and received a preoperative evaluation to ensure that no optimization measures would be necessary to minimize the patient's risk for complications around surgery prior to proceeding with intramedullary nailing. ?After assessment from the underwriting clerks supervisor as well as anesthesia the patient was deemed optimized for surgery. ?Risks and benefits were discussed. ?All questions were answered. ?Informed consent was obtained. ?The operative site on the left extremity was marked. ?The patient was taken to the operating room and transferred onto a [place] table. ?All bony prominences were padded. ?A time-out procedure was performed verifying the correct patient identity, operative site, medical comorbidities, ASA score, and medication allergies. ?Injury radiographs displaying the injured hip were displayed in the room. ?Ancef and tranexamic acid were administered. Prior to incision fluoroscopy was utilized to manipulate the fracture into an appropriate reduction. ?This involved no traction and 0 degrees of internal rotation. The fracture was well aligned in the position it was in when the patient was initially placed in the fracture table and actually distracted slightly when traction was applied so this was released. ?Once satisfied with the radiographic appearance of the fracture on an AP hip radiograph as well as a lateral hip radiograph the patient was prepped and draped in the usual sterile fashion. ?I mapped out the start points fluoroscopically with the guidewire. ?I obtained a start point at the tip of the greater trochanter on the AP view aiming towards the lesser trochanter and centered in the greater trochanter aiming down the femoral shaft on the lateral view. I initially had a start point which was slightly posterior on the greater trochanter and used a honeycomb device to reposition it more anteriorly. ?The guidewire was inserted and an opening Reamer was utilized to gain access to the canal. ?The InterTAN nail was introduced and passed down to an appropriate depth where the interlocking screws would aim towards the center of the femur on an AP view. ?On a lateral fluoroscopic view the rotation of the C-arm was adjusted until the nail was centered in the femoral head. ?The jig was then rotated so that it would line with the nail and the femoral head in order to set the rotation of the nail. ?A guidewire was passed and evaluated to ensure appropriate center center position on both the AP and lateral fluoroscopic images to minimize tip apex distance. ?Once satisfied with the guidewire position I used the drills for the lag and compression screws for the InterTAN nail and measured the length of those. ?The compression screw utilized was 5 mm shorter than the lag screw. ?These were both inserted and correct positioning was verified fluoroscopically. ?The distal interlocking screw was inserted through the jig. ?The threaded capsular was removed proximally and final fluoroscopic images were obtained evaluating fracture reduction and implant positioning on AP and lateral views throughout the entire construct. ?I was satisfied with these radiographs. The wound was copiously irrigated. ?Local anesthesia was infiltrated throughout the wound. The patient has a history of a staph infection in the ipsilateral lower leg around his knee with a large healed scar in that area. Because of this I mixed vancomycin in with the local anesthetic and will have him on prophylactic cefadroxil postoperatively. ?The wound was closed and a soft dressing was applied. ?The patient was transferred off of the [place] table and brought to the PACU. Postoperative plan: * Weightbearing as tolerated * Aspirin 81 mg twice per day for DVT prophylaxis * Recommend multimodal pain regimen * Cefadroxil 500 mg twice per day for 14 days * Stress the importance of smoking cessation for bone healing * Physical therapy to evaluate patient mobility, home set up, and availability of assistance at home to determine appropriateness for discharge home versus subacute rehab * Follow up in 2 weeks at [facility]
[2023-11-09] MEDS: TRIMETH/SULFA 160/800 (DS) TABLET 1 TAB PO (20:14)
[2023-11-09] MEDS: DOCUSATE 100 MG CAPSULE PO (20:15)
[2023-11-09] MEDS: SENNOSIDES 8.6 MG TABLET 17.2 MG PO (20:15)
[2023-11-09] MEDS: ASPIRIN EC 81 MG TABLET PO (20:15)
[2023-11-09] MEDS: CEFAZOLIN VIAL 1 GM in SODIUM CHLORIDE 0.9% 100 ML IV (23:25)
[2023-11-10] VITALS (11 sets, daily range): BP systolic 115–152; BP diastolic 61–88; PULSE 76–100; RESP 14–17; TEMP 36.1–36.8; O2SAT 96–99
[2023-11-10] MEDS: OXYCODONE IR 5 MG TABLET PO ×2 (02:16→08:52)
[2023-11-10] MEDS: ACETAMINOPHEN 325 MG TABLET 650 MG PO ×3 (02:17→19:51)
[2023-11-10] MEDS: HYDROMORPHONE 0.5 MG INJ IV (04:47)
[2023-11-10] MEDS: PANTOPRAZOLE DR 40 MG TABLET PO (06:23)
[2023-11-10 06:44] LABS: Add Manual Diff / Slide Review NO; Basophils Absolute Auto 0 /uL (0-100); Basophils Percent Auto 0.1 % (0-2); Eosinophils Absolute Auto 0 /uL (0-450); Hematocrit 33.4 % (41-53); Hemoglobin 11.3 g/dL (13.5-17.5); Lymphocytes Absolute Auto 400 /uL (1100-4500); Lymphocytes Percent Auto 3.2 % (25-40); Mean Corpuscular HGB Conc 33.9 % (30-36); Mean Corpuscular Hemoglobin 34.8 PG (26-34); Mean Corpuscular Volume 102.4 fL (80-100); Monocytes Absolute Auto 700 /uL (0-900); Monocytes Percent Auto 6.3 % (3-14); Neutrophils Absolute Auto 10300 /uL (1500-7000); Neutrophils Percent Auto 90.4 % (50-75); Platelet Count 183 X10^3/uL (150-400); Red Blood Cell Count 3.26 X10^6/uL (4.5-5.9); Red Cell Distribution Width 14.3 % (11.6-14.8); White Blood Cell Count 11.5 X10^3/uL (4.5-11.0)
[2023-11-10 06:54] LABS: Blood Urea Nitrogen 12 mg/dL (9-20); Calcium 8.7 mg/dL (8.4-10.2); Carbon Dioxide 22 mmol/L (22-32); Chloride 103 mmol/L (98-107); Estimated Glomerular Filt Rate > 60 mL/min (>60); Glucose 123 mg/dL (70-100); HEMOLYSIS < 15 (0-50); Magnesium 2.2 mg/dL (1.6-2.3); Potassium 4.4 mmol/L (3.4-5.1); Sodium 134 mmol/L (137-145)
--- NOTE | 2023-11-10 08:20 | P.PN_ITS ---
Subjective Subjective Interval history: S: He was doing well except for left hip pain. The pain is well-controlled with current pain medications. I discussed pain regimen with his nurse, we will stop IV Dilaudid and increase oxycodone to 10 mg p.o. Q 3 hours as needed pain. He denies any dyspnea. He did have a staph infection in the leg when he was 12 years old. He was a long incisional scar in the lateral anterior aspect of the left thigh. Ortho requests 2 weeks of Bactrim for prophylaxis. S/P ORIF L Hip 11/08. From [place]: Interval history: 58 M with PMH of EtOH use, admitted after a fall off a ladder with a left hip fracture. No other injuries noted, patient seen by trauma service with no further recommendations. Plan for operative repair of his fracture today. No history of alcohol withdrawal in the past. Exam Vital Signs (past 8 hours): - 11/10/23 01:00 11/10/23 04:00 11/10/23 05:22 Temperature 97.0 F L Pulse Rate 84 Respiratory Rate 17 Blood Pressure 127/88 Pulse Oximetry 97 97 96 Oxygen Delivery Method Room Air Room Air Oxygen Flow Rate 0 0 0 Oxygen Delivery Method Room Air Oxygen Flow Rate 0 Narrative Exam Narrative: NAD, alert and oriented. Fluent speech. Lungs are clear, normal rate and effort. Heart is regular, no murmur gallop or rub. Abdomen is soft, non distended. Extremities are free of edema. Left hip has dressings with some serous drainage. He was good pedal pulse on the left foot. The thigh is relatively soft and not turgid. Objective Labs 11/10/23 05:30 11/10/23 05:30 Labs: Laboratory Results - last 24 hr 11/10/23 05:30 WBC 11.5 H RBC 3.26 L Hgb 11.3 L Hct 33.4 L MCV 102.4 H MCH 34.8 H MCHC 33.9 RDW 14.3 Plt Count 183 Neut % (Auto) 90.4 H Lymph % (Auto) 3.2 L [place] % (Auto) 6.3 Eos % (Auto) 0.0 L Baso % (Auto) 0.1 Neut # (Auto) 77323 H Lymph # (Auto) 400 L [place] # (Auto) 700 Eos # (Auto) 0 Baso # (Auto) 0 Sodium 134 L Potassium 4.4 Chloride 103 Carbon Dioxide 22 BUN 12 Creatinine 0.80 Estimated GFR > 60 BUN/Creatinine Ratio 15.0 Glucose 123 H Calcium 8.7 Magnesium 2.2 PFSH Social History household members: family Smoking Status: Current every day smoker alcohol intake: current Assessment & Plan Assessment & Plan narrative: 58 years old male chronic smoker with apparent no medical issues was found to the emergency room status post fall about 5 to 6 feet with a horse when he fell landing on his left side with the significant facial contusions found to have a left intertrochanteric femur fracture, with orthopedic service performing operative repair planned for today. 1. Trauamatic left intertrochanteric femure fracture after a fall from a ladder. - OR today with orthopedics - Appreciate trauma consultation, no further interventions needed - patient appears medically optimized prior to surgery - mild anemia on labs will continue to follow. 2 Alcohol use. No evidence of withdrawal or intoxication. Monitor for now. Add vitamin B1 3 Smoker. Advised to quit smoking and initiate nicotine patch PLAN: -Bactrim BID 2 Weeks. -ASA BID 6 Weeks -PT/OT/OOB -Discharge planning. Dispo: inpatient, will likely discharge home once ready after surgical repair and evaluation by therapies. Code: Full DVT: SCDs, asa BID or Lovenox daily after surgery per orthopedics Quality VTE Deep Vein Thrombosis/Pulmonary Embolism Present on Admission: No
[2023-11-10] MEDS: TRIMETH/SULFA 160/800 (DS) TABLET 1 TAB PO ×2 (08:52→20:38)
[2023-11-10] MEDS: NICOTINE 14 PATCH 14 MG TOP (08:52)
[2023-11-10] MEDS: DOCUSATE 100 MG CAPSULE PO ×2 (08:52→20:38)
[2023-11-10] MEDS: CEFAZOLIN VIAL 1 GM in SODIUM CHLORIDE 0.9% 100 ML IV (08:53)
[2023-11-10] MEDS: ASPIRIN EC 81 MG TABLET PO ×2 (08:53→20:38)
[2023-11-10] MEDS: polyethylene glycoL 3350 17 GM POWD.PACK PO (08:53)
--- NOTE | 2023-11-10 10:42 | CM.DPC ---
DCP Cont. Pt is being recommended for SNF rehab post-d/c. Per his request, sent referral and clinicals to [facility]. He does have [employer] insurance, which can be prohibitive in obtaining placement due to their low reimbursement rate. Belle from will let us know if they can accept or not. He would be ready by tomorrow with his 3-midnights.
[2023-11-10] MEDS: OXYCODONE IR 5 MG TABLET 10 MG PO (12:22)
--- NOTE | 2023-11-10 13:20 | PT.IIE ---
Addendum entered and electronically signed by Beverly Iniguez PT 11/10/23 13:22: PT provides direct superv during SPT assessment Original Note: Current Diagnoses Fracture of unspecified part of neck of left femur, initial encounter for closed fracture (11/08/23) Surgery Performed Operation Date: 11/09/23 15:15 Actual Procedures p Intramedullary Nailing Femur(Left) - Alexandru Downing MD Physical Therapy Inpatient Evaluation/Re-Eval M1 PT/OT-IP Prior Functional Status Start: 11/10/23 10:46 Freq: NEEDED Status: Active Protocol: Document 11/10/23 12:20 JG (Rec: 11/10/23 13:19 [id number]) Medical Review Prior Functional Status Medical History Reviewed Yes Communication WNL Mobility and Gait I Activities of Daily Living and IADL's Worked as a clinical support manager Social History Household Members family Living Arrangements Other Number of Floors (Floors) One Floor Number of Stairs To Enter/Railing? 2 Home Environment Standard Height Toilet,Walk in Shower Home Equipment Hand Held Shower Employment Status Self-Employed Additional Social History Comment Lives with his brother in a motel. Works as a clinical support manager on odd jobs M2 PT-IP Current Condition Start: 11/10/23 10:46 Freq: NEEDED Status: Active Protocol: Document 11/10/23 12:20 JG (Rec: 11/10/23 13:19 [id number]) Physical Therapy Current Condition Current Condition Evaluation Date 11/10/23 Treatment Diagnosis Fall, left hip fracture and IM nailing M3 PT-IP Subjective Start: 11/10/23 10:46 Freq: NEEDED Status: Active Protocol: Document 11/10/23 12:20 JG (Rec: 11/10/23 13:19 [id number]) Subjective Physical Therapy Visit Type Type Initial Evaluation Visit Start Time 12:20 Visit Stop Time 12:40 Number of ARCHITECTURAL ENGINEERING TEACHER Visits 0 Physical Therapy Visit Comments Patient Comments Pt asks family if he could have the room upon PT arrival. Therapy Pain Assessment Pain When Pain Assessed During Mobility Pain Present Pain Present Pain Reported Location Left hip Intensity 7 Scale Used Numeric (0 - 10) Description Sharp,Shooting,With Movement Pain Behaviors Facial Grimacing,Guarding, Wincing Pain Management Techniques Re-positioning,Timing of Activity with Medications M4 PT-IP Mobility and Gait Start: 11/10/23 10:46 Freq: NEEDED Status: Active Protocol: Document 11/10/23 12:20 KELIN (Rec: 11/10/23 13:19 Octavia [id number]) PT-Bed Mobility Assessment Supine to Sit Supine to Sit Standby Assistance,1 Person Assistance,Head of Bed Elevated Scooting Scooting to Edge of Bed Standby Assistance PT-Transfer Assessment Sit to and From Stand Sit to and from Stand Contact Guard Assistance,1 Person Assistance,Use of Upper Extremities Equipment Transfer Assistive Device Gait Belt,Front Wheeled Walker Orthotic/Prosthetic Devices or Brace: No Transfers Transfer Destination Chair Transfer Technique Ambulation Transfer Ability Level of Assist Standby Assistance Comments Mobility Comments Pt was able to follow directions and perform mobility with SBA and is I with scooting. He uses gait belt around left foot that PT sets-up for him to help scoot his left leg to the left to get OOB Gait Assessment Gait Gait Assistance Required: Contact Guard Assist Distance (Feet) 20 Able to Maintain Weight Bearing Status Yes During Gait Assistive Devices Assistive Device Gait Belt,Front Wheeled Walker Orthotic/Prosthetic Devices or Brace: No Gait Deviations General Gait Pattern Antalgic,Decreased Stride Length,Decreased Feet Clearance,Flexed Trunk,Step-to Gait Factors Limiting Gait Function Factors Limiting Gait Function Decreased Activity Tolerance, Decreased Strength,Limited Range of Motion,Pain,Poor Balance,Poor Safety Awareness Comments Gait Comments Pt was able to ambulate from bed to chair with a step to gait pattern and CGA PT-Balance Assessment Sitting Balance and Reactions Static Sitting Balance Ability Good Dynamic Sitting Balance Ability Good Standing Balance and Reactions Static Standing Balance Ability Fair Dynamic Standing Balance Ability Fair Device Used RW M5 PT-IP Objective Assessments Start: 11/10/23 10:46 Freq: NEEDED Status: Active Protocol: Document 11/10/23 12:20 KELIN (Rec: 11/10/23 13:19 Octavia [id number]) Orientation Orientation/Cognition Level of Alertness Alert Orientation Name,Age,Birthday,Month,Date, Year,Day of Week,Place, Situation Language Function Ability No Deficits Noted Safety Awareness Decreased Safety Awareness Memory Description No Deficits Noted Comments Cues for hand placement with transfers Gross Range of Motion Upper Extremity ROM Assessment Within Functional Limits Lower Extremity ROM Assessment Left Impaired Impairments Minimal HS and AP on the left Strength Upper Extremity Strength Assessment Within Functional Limits Lower Extremity Strength Assessment Left Impaired Comments Strength Comments RLE normal and left ankle appears functional: deferred left knee and hip post fracture and surgery Other Assessments Other Other Assessments LLE edema changes noted M6 PT-IP Treatment Start: 11/10/23 10:46 Freq: NEEDED Status: Active Protocol: Document 11/10/23 12:20 JG (Rec: 11/10/23 13:19 JG [id number]) Physical Therapy Treatment Exercises Exercises Ankle Pumps,Heel Slides Education Education Provided Weight Bearing Status,Safety M7 PT-IP Assessment and Plan Start: 11/10/23 10:46 Freq: NEEDED Status: Active Protocol: Document 11/10/23 12:20 JG (Rec: 11/10/23 13:19 JG [id number]) PT Summary Assessment and Plan Potential Rehabilitation Potential Good Status of Condition at Evaluation Stable Summary Impairments Pain,ROM,Strength,Balance,Bed Mobility,Transfers,Gait, Activity Tolerance Progress Towards Goals Progressing Toward Goals Assessment Summary Pt is a 58 y/o male presenting s/p fall, left hip fracture and IM nailing. Pt has pain in the left hip and it reaches a 7/10 with mobility. 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 Pt has a slow antalgic gait pattern and a flexed trunk posture. Gait training limited to room today d/t pain and will con't to progress mobility in acute setting. Consider home with HH or SNF at d/c. Goals Bed Mobility Goal Independent Transfer Goal Independent,Front Wheeled Walker Gait Goal Independent,Front Wheel Walker Gait Distance 150 Other Goals Pt will be able to ascend and decend 2 steps with walker to allow safe motel entrance. Days to Meet Goals 5 Frequency of Treatment Frequency Of Treatment Twice a Day Treatment Plan Physical Therapy Treatment Plan Bed Mobility Training,Transfer Training,Gait Training, Therapeutic Exercise,Balance Retraining,Discharge Planning, Coordination Retraining Weight Bearing Status Weight Bearing Status Weight Bear as Tolerated Recommendations To Nursing Amount of Assist Needed 1 Person Assist Discharge Recommendations PT Discharge Recommendations Home Health,Home vs SNF Other Discharge Recommendations If pt d/cs back to the motel, he will need a RW Transportation Needs at Discharge Private Vehicle
--- NOTE | 2023-11-10 14:20 | PT.IPTN ---
Current Diagnoses Fracture of unspecified part of neck of left femur, initial encounter for closed fracture (11/08/23) Surgery Performed Operation Date: 11/09/23 15:15 Actual Procedures p Intramedullary Nailing Femur(Left) - Alexandru Downing MD Physical Therapy Treatment Note M2 PT-IP Current Condition Start: 11/10/23 10:46 Freq: NEEDED Status: Active Protocol: Document 11/10/23 12:20 JG (Rec: 11/10/23 13:19 JG [id number]) Physical Therapy Current Condition Current Condition Evaluation Date 11/10/23 Treatment Diagnosis Fall, left hip fracture and IM nailing M3 PT-IP Subjective Start: 11/10/23 10:46 Freq: NEEDED Status: Active Protocol: Document 11/10/23 14:58 TS (Rec: 11/10/23 15:19 TS [id number]) Subjective Physical Therapy Visit Type Type Treatment Note Visit Start Time 14:20 Visit Stop Time 14:45 Number of EP SPECIALIST Visits 1 Physical Therapy Visit Comments Patient Comments Pt found resting in chair, reports increased pain this afternoon, he is agreeable to PT. Therapy Pain Assessment Pain When Pain Assessed During Mobility Pain Present Pain Present Pain Reported Location Left hip Intensity 7 Scale Used Numeric (0 - 10) Description Sharp,Shooting,With Movement Pain Behaviors Facial Grimacing,Guarding, Wincing Pain Management Techniques Re-positioning,Timing of Activity with Medications M4 PT-IP Mobility and Gait Start: 11/10/23 10:46 Freq: NEEDED Status: Active Protocol: Document 11/10/23 14:58 TS (Rec: 11/10/23 15:19 TS [id number]) PT-Bed Mobility Assessment Sit to Supine Sit to Supine Standby Assistance Scooting Scooting Up and Down in Bed Standby Assistance PT-Transfer Assessment Sit to and From Stand Sit to and from Stand Contact Guard Assistance,1 Person Assistance,Use of Upper Extremities Equipment Transfer Assistive Device Gait Belt,Front Wheeled Walker Orthotic/Prosthetic Devices or Brace: No Comments Mobility Comments Pt is impulsive to stand before therapist is ready with FWW, required cues to remain seated. STS from chair CGA with FWW. He ambulated 2x15' with FWW CGA, pt is very unsteady and has a sep to gait antalgic gait. Sit to supine into bed Rocio and use of gait belt for LLE assistance. Pt performed heel slides, ankle pumps and quad sets in bed, was instructed in intensity and frequency of ex. Pt was left in bed, all needs met. Gait Assessment Gait Gait Assistance Required: Contact Guard Assist Distance (Feet) 30 Able to Maintain Weight Bearing Status Yes During Gait Assistive Devices Assistive Device Gait Belt,Front Wheeled Walker Orthotic/Prosthetic Devices or Brace: No Gait Deviations General Gait Pattern Antalgic,Decreased Stride Length,Decreased Feet Clearance,Flexed Trunk,Step-to Gait Factors Limiting Gait Function Factors Limiting Gait Function Decreased Activity Tolerance, Decreased Strength,Limited Range of Motion,Pain,Poor Balance,Poor Safety Awareness PT-Balance Assessment Sitting Balance and Reactions Static Sitting Balance Ability Good Dynamic Sitting Balance Ability Good Standing Balance and Reactions Static Standing Balance Ability Fair Dynamic Standing Balance Ability Fair Device Used RW M5 PT-IP Objective Assessments Start: 11/10/23 10:46 Freq: NEEDED Status: Active Protocol: Document 11/10/23 12:20 JG (Rec: 11/10/23 13:19 J [id number]) Orientation Orientation/Cognition Level of Alertness Alert Orientation Name,Age,Birthday,Month,Date, Year,Day of Week,Place, Situation Language Function Ability No Deficits Noted Safety Awareness Decreased Safety Awareness Memory Description No Deficits Noted Comments Cues for hand placement with transfers Gross Range of Motion Upper Extremity ROM Assessment Within Functional Limits Lower Extremity ROM Assessment Left Impaired Impairments Minimal HS and AP on the left Strength Upper Extremity Strength Assessment Within Functional Limits Lower Extremity Strength Assessment Left Impaired Comments Strength Comments RLE normal and left ankle appears functional: deferred left knee and hip post fracture and surgery Other Assessments Other Other Assessments LLE edema changes noted M6 PT-IP Treatment Start: 11/10/23 10:46 Freq: NEEDED Status: Active Protocol: Document 11/10/23 14:58 TS (Rec: 11/10/23 15:19 TS [id number]) Physical Therapy Treatment Exercises Exercises Ankle Pumps,Quad Sets,Heel Slides Education Education Provided Weight Bearing Status,Safety M7 PT-IP Assessment and Plan Start: 11/10/23 10:46 Freq: NEEDED Status: Active Protocol: Document 11/10/23 14:58 TS (Rec: 11/10/23 15:19 TS [id number]) PT Summary Assessment and Plan Potential Rehabilitation Potential Good Summary Impairments Pain,ROM,Strength,Balance,Bed Mobility,Transfers,Gait, Activity Tolerance Progress Towards Goals Slow Progress due to Pain Assessment Summary Aneesh is making slow progress with his mobility due to pain this session. He ambulated 2x15' CGa with FWW. He is having increased pain and more unsteadiness with his gait. He performs all bed mobility SBA with BUE support. PT is recommending SNF at this time to progress strength and functional mobility before safe d/c home. Goals Bed Mobility Goal Independent Transfer Goal Independent,Front Wheeled Walker Gait Goal Independent,Front Wheel Walker Gait Distance 150 Other Goals Pt will be able to ascend and decend 2 steps with walker to allow safe motel entrance. Days to Meet Goals 5 Frequency of Treatment Frequency Of Treatment Twice a Day Treatment Plan Physical Therapy Treatment Plan Bed Mobility Training,Transfer Training,Gait Training, Therapeutic Exercise,Balance Retraining,Discharge Planning, Coordination Retraining Weight Bearing Status Weight Bearing Status Weight Bear as Tolerated Recommendations To Nursing Amount of Assist Needed 1 Person Assist Discharge Recommendations PT Discharge Recommendations SNF Rehab Other Discharge Recommendations If pt d/cs back to the motel, he will need a RW Transportation Needs at Discharge Private Vehicle
--- NOTE | 2023-11-10 19:32 | P.PN_ITS ---
Subjective Subjective Interval history: Aneesh is a pleasant 58-year-old male who is postop day #1 s/p Intramedullary nailing of intertrochanteric left femur fracture by Dr. Downing. Patient initially injured himself when he fell off a ladder 6ft. He reports he is doing well overall, pain is moderate-severe but well-controlled Q4 opioids. Lives at home with brother but states they do not have a car and have to walk to get to appointments/therapy, his brother is also recovering from heart surgery right now and will only be able to provide minimal help at home. Urinating well without issue. We will prescribe bactrim for infection prophylaxis given history of staph infection in operative extremity. Patient should be sent home with a 2 week bactrim prescription as well as nicotine patches. Denies fever, chills, chest pain, SOB, nausea, vomiting. Exam Vital Signs (past 8 hours): - 11/10/23 12:00 11/10/23 13:00 11/10/23 16:00 Temperature 98.0 F 98.0 F Pulse Rate 89 100 H Respiratory Rate 14 14 Blood Pressure 138/87 152/81 H Pulse Oximetry 98 98 96 Oxygen Delivery Method Room Air Oxygen Flow Rate 0 0 0 Oxygen Delivery Method Room Air Oxygen Flow Rate 0 Narrative Exam Narrative: Sitting up comfortably in bed during our interview today, SCDs on and functioning, no acute distress. Respirations are even and non labored. A&O x4. 5/5 strength with DF, PF, EHL bilaterally. Limited left knee flexion and extension due to pain. Gross sensation intact to light touch throughout bilateral lower extremities. Calf soft, compressible, nontender bilaterally. Postsurgical dressing intact, there is moderate-severe bloody drainage on the post surgical gauze dressing. Brisk capillary refill. Resp Effort & Inspection: normal respiratory effort and able to speak in complete sentences Objective Labs 11/10/23 05:30 11/10/23 05:30 Labs: Laboratory Results - last 24 hr 11/10/23 05:30 WBC 11.5 H RBC 3.26 L Hgb 11.3 L Hct 33.4 L MCV 102.4 H MCH 34.8 H MCHC 33.9 RDW 14.3 Plt Count 183 Neut % (Auto) 90.4 H Lymph % (Auto) 3.2 L [place] % (Auto) 6.3 Eos % (Auto) 0.0 L Baso % (Auto) 0.1 Neut # (Auto) 03426 H Lymph # (Auto) 400 L [place] # (Auto) 700 Eos # (Auto) 0 Baso # (Auto) 0 Sodium 134 L Potassium 4.4 Chloride 103 Carbon Dioxide 22 BUN 12 Creatinine 0.80 Estimated GFR > 60 BUN/Creatinine Ratio 15.0 Glucose 123 H Calcium 8.7 Magnesium 2.2 PFSH Social History household members: family Smoking Status: Current every day smoker alcohol intake: current Assessment & Plan Post-op Postoperative Procedures: Procedures Operation Date: 11/09/23 15:15 Actual Procedure Side Surgeon p Intramedullary Nailing Femur Left Alexandru Downing MD Postoperative day: 1 Postoperative plan narrative: 1) Discharge to SNF vs home per Medicine. May need SNF for initial rehab as patient does not have a car to get to and from therapy and lives at home with his brother who is only able to provide mild support. 2) Continue multimodal pain management with ice to the knee/hip for additional pain control. Patient should be sent home with a 2 week bactrim prescription as well as nicotine patches. Encouraged smoking cessation to aid in bone healing. 3) ASA b.i.d. for DVT prophylaxis. 4) Work with physical therapy to increase range of motion and mobility. Weightbearing as tolerated 5) Keep dressing intact, clean, dry until 2 week postop appointment. No soaking the incision site in pools or tubs. No topical ointments or creams to the incision site. 6) Follow up at [facility] orthopedics in 2 weeks for a postop appointment and wound check. Can plan to change postsurgical dressing to a clean dressing prior to discharge. All patient's questions were answered, they demonstrates understanding and are in agreement with the plan. Call our office if any questions or concerns arise. Quality VTE Deep Vein Thrombosis/Pulmonary Embolism Present on Admission: No
[2023-11-10] MEDS: SENNOSIDES 8.6 MG TABLET 17.2 MG PO (20:38)
[2023-11-11] MEDS: OXYCODONE IR 5 MG TABLET 10 MG PO ×5 (05:25→22:13)
[2023-11-11] MEDS: ACETAMINOPHEN 325 MG TABLET 650 MG PO ×2 (05:26→14:30)
[2023-11-11 05:45] LABS: Add Manual Diff / Slide Review NO; Basophils Absolute Auto 0 /uL (0-100); Basophils Percent Auto 0.3 % (0-2); Eosinophils Absolute Auto 0 /uL (0-450); Eosinophils Percent Auto 0.3 % (2-4); Hemoglobin 10.7 g/dL (13.5-17.5); Lymphocytes Absolute Auto 900 /uL (1100-4500); Lymphocytes Percent Auto 12.7 % (25-40); Mean Corpuscular HGB Conc 34.4 % (30-36); Mean Corpuscular Hemoglobin 35.1 PG (26-34); Mean Corpuscular Volume 102.2 fL (80-100); Monocytes Absolute Auto 1000 /uL (0-900); Monocytes Percent Auto 13.5 % (3-14); Neutrophils Absolute Auto 5200 /uL (1500-7000); Neutrophils Percent Auto 73.2 % (50-75); Platelet Count 172 X10^3/uL (150-400); Red Blood Cell Count 3.04 X10^6/uL (4.5-5.9); Red Cell Distribution Width 14.3 % (11.6-14.8); White Blood Cell Count 7.1 X10^3/uL (4.5-11.0)
[2023-11-11 06:02] LABS: BUN Creatinine Ratio 14.3 (6-22); Blood Urea Nitrogen 12 mg/dL (9-20); Calcium 8.4 mg/dL (8.4-10.2); Carbon Dioxide 24 mmol/L (22-32); Chloride 104 mmol/L (98-107); Estimated Glomerular Filt Rate > 60 mL/min (>60); Glucose 102 mg/dL (70-100); HEMOLYSIS < 15 (0-50); Magnesium 2.3 mg/dL (1.6-2.3); Potassium 3.5 mmol/L (3.4-5.1); Sodium 134 mmol/L (137-145)
[2023-11-11 07:00] VITALS: O2SAT 99
--- NOTE | 2023-11-11 07:00 | PM.PNPO.1 ---
Subjective Subjective Date Patient Seen: 11/11/23 Time Patient Seen: 07:00 Interval history: Pt lying comfortably in bed, worked w/ PT yesterday. Lives independently, d/c home vs SNF at this time. Has a remote h/o staff infection in the operative leg and will be on Bactrim DS for a total of 28 doses following surgery to prevent infection. Exam Vital Signs (past 8 hours): Oxygen Delivery Method Room Air Oxygen Flow Rate 0 Narrative Exam Narrative: 5/5 strength in hip flexors, quadriceps, hamstrings, DF, PF, EHL on left. Sensation to light touch intact throughout LLE, calf soft and compressible. Distal dressing saturated w/ old blood-tinged drainage. Objective Labs 11/11/23 04:45 11/11/23 04:45 Labs: Laboratory Results - last 24 hr 11/10/23 11/11/23 05:30 04:45 WBC 7.1 RBC 3.04 L Hgb 10.7 L Hct 31.0 L MCV 102.2 H MCH 35.1 H MCHC 34.4 RDW 14.3 Plt Count 172 Neut % (Auto) 73.2 Lymph % (Auto) 12.7 L [place] % (Auto) 13.5 Eos % (Auto) 0.3 L Baso % (Auto) 0.3 Neut # (Auto) 5200 Lymph # (Auto) 900 L [place] # (Auto) 1000 H Eos # (Auto) 0 Baso # (Auto) 0 Sodium 134 L 134 L Potassium 4.4 3.5 Chloride 103 104 Carbon Dioxide 22 24 BUN 12 12 Creatinine 0.80 0.84 Estimated GFR > 60 > 60 BUN/Creatinine Ratio 15.0 14.3 Glucose 123 H 102 H Calcium 8.7 8.4 Magnesium 2.2 2.3 PFSH Social History household members: family Smoking Status: Current every day smoker alcohol intake: current Assessment & Plan Post-op Assessment and plan (1) Closed hip fracture: Assessment and Plan narrative: 1) Weightbearing as tolerated to left leg. 2) Aspirin 81mg BID x 4 weeks for VTE prophylaxis. 3) Bactrim DS BID x total of 28 doses for infection prevention. 4) Pain control, disposition per hospitalist service. 5) F/u in ortho office in 2 weeks for wound check, in 6 weeks w/ Dr Secrist for repeat imaging. Postoperative Procedures: Procedures Operation Date: 11/09/23 15:15 Actual Procedure Side Surgeon p Intramedullary Nailing Femur Left Alexandru Downing MD Postoperative day: 2 Quality VTE Deep Vein Thrombosis/Pulmonary Embolism Present on Admission: No
[2023-11-11] MEDS: PANTOPRAZOLE DR 40 MG TABLET PO (07:41)
[2023-11-11 08:00] VITALS: BP 131/79; PULSE 83; RESP 18; TEMP 36.4; O2SAT 99
[2023-11-11] MEDS: polyethylene glycoL 3350 17 GM POWD.PACK PO (08:17)
[2023-11-11] MEDS: ASPIRIN EC 81 MG TABLET PO ×2 (08:17→20:22)
[2023-11-11] MEDS: DOCUSATE 100 MG CAPSULE PO ×2 (08:17→20:22)
[2023-11-11] MEDS: TRIMETH/SULFA 160/800 (DS) TABLET 1 TAB PO (08:18)
[2023-11-11] MEDS: SODIUM CHLORIDE 0.9% FLUSH 10 ML IV ×2 (08:18→20:23)
[2023-11-11] MEDS: NICOTINE 14 PATCH 14 MG TOP (08:18)
--- NOTE | 2023-11-11 09:11 | PT.IPTN ---
Current Diagnoses Fracture of unspecified part of neck of left femur, initial encounter for closed fracture (11/08/23) Surgery Performed Operation Date: 11/09/23 15:15 Actual Procedures p Intramedullary Nailing Femur(Left) - Alexandru Downing MD Physical Therapy Treatment Note M2 PT-IP Current Condition Start: 11/10/23 10:46 Freq: NEEDED Status: Active Protocol: Document 11/10/23 12:20 JG (Rec: 11/10/23 13:19 JG [id number]) Physical Therapy Current Condition Current Condition Evaluation Date 11/10/23 Treatment Diagnosis Fall, left hip fracture and IM nailing M3 PT-IP Subjective Start: 11/10/23 10:46 Freq: NEEDED Status: Active Protocol: Document 11/11/23 10:33 TS (Rec: 11/11/23 10:51 TS [id number]) Subjective Physical Therapy Visit Type Type Treatment Note Visit Start Time 09:11 Visit Stop Time 09:37 Number of WELL BLOWER Visits 2 Physical Therapy Visit Comments Patient Comments Pt found resting in bed, reports doing his ther ex last night, he is agreeable to PT. Therapy Pain Assessment Pain When Pain Assessed During Mobility Pain Present Pain Present Pain Reported M4 PT-IP Mobility and Gait Start: 11/10/23 10:46 Freq: NEEDED Status: Active Protocol: Document 11/11/23 10:33 TS (Rec: 11/11/23 10:51 TS [id number]) PT-Bed Mobility Assessment Supine to Sit Supine to Sit Standby Assistance,1 Person Assistance,Head of Bed Elevated Sit to Supine Sit to Supine Standby Assistance Scooting Scooting to Edge of Bed Standby Assistance Scooting Up and Down in Bed Standby Assistance PT-Transfer Assessment Sit to and From Stand Sit to and from Stand Standby Assistance,Use of Upper Extremities Equipment Transfer Assistive Device Gait Belt,Front Wheeled Walker Orthotic/Prosthetic Devices or Brace: No Comments Mobility Comments Pt performed ther-ex of ankle pumps, heel slides and quad sets, handout was provided to pt. Supine to sit SBA with HOB elevated. Pt is impulsive to stand before therapist is ready with FWW and gait belt. STS from bed with FWW SBA. Pt ambulated 2x30' in room SBA with antalgic step to gait. Pt requests to use toilet, performed own pericare. Sit to supine back to bed SBA, pt required cues to maintain hold of FWW before sitting. Pt was left in bed, all needs met. Gait Assessment Gait Gait Assistance Required: Standby Assistance Distance (Feet) 60 Able to Maintain Weight Bearing Status Yes During Gait Assistive Devices Assistive Device Gait Belt,Front Wheeled Walker Orthotic/Prosthetic Devices or Brace: No Gait Deviations General Gait Pattern Antalgic,Decreased Stride Length,Decreased Feet Clearance,Flexed Trunk,Step-to Gait Factors Limiting Gait Function Factors Limiting Gait Function Decreased Activity Tolerance, Decreased Strength,Limited Range of Motion,Pain,Poor Balance,Poor Safety Awareness PT-Balance Assessment Sitting Balance and Reactions Static Sitting Balance Ability Good Dynamic Sitting Balance Ability Good Standing Balance and Reactions Static Standing Balance Ability Fair Dynamic Standing Balance Ability Fair Device Used RW M5 PT-IP Objective Assessments Start: 11/10/23 10:46 Freq: NEEDED Status: Active Protocol: Document 11/10/23 12:20 JG (Rec: 11/10/23 13:19 J [id number]) Orientation Orientation/Cognition Level of Alertness Alert Orientation Name,Age,Birthday,Month,Date, Year,Day of Week,Place, Situation Language Function Ability No Deficits Noted Safety Awareness Decreased Safety Awareness Memory Description No Deficits Noted Comments Cues for hand placement with transfers Gross Range of Motion Upper Extremity ROM Assessment Within Functional Limits Lower Extremity ROM Assessment Left Impaired Impairments Minimal HS and AP on the left Strength Upper Extremity Strength Assessment Within Functional Limits Lower Extremity Strength Assessment Left Impaired Comments Strength Comments RLE normal and left ankle appears functional: deferred left knee and hip post fracture and surgery Other Assessments Other Other Assessments LLE edema changes noted M6 PT-IP Treatment Start: 11/10/23 10:46 Freq: NEEDED Status: Active Protocol: Document 11/11/23 10:33 TS (Rec: 11/11/23 10:51 [id number]) Physical Therapy Treatment Exercises Exercises Ankle Pumps,Quad Sets,Heel Slides Education Education Provided Weight Bearing Status,Safety M7 PT-IP Assessment and Plan Start: 11/10/23 10:46 Freq: NEEDED Status: Active Protocol: Document 11/11/23 10:33 TS (Rec: 11/11/23 10:51 [id number]) PT Summary Assessment and Plan Potential Rehabilitation Potential Good Summary Impairments Pain,ROM,Strength,Balance,Bed Mobility,Transfers,Gait, Activity Tolerance Progress Towards Goals Progressing Toward Goals Assessment Summary Aneesh continues to make progress with his mobility. He is SBA for all bed mobility. He performed STS x2 SBA with use of FWW. He progressed his gait to 2x30'SBA with FWW. He is impulsive and lacks good safety awareness with his mobility. PT is recommending Home 24/7 with HHPT vs SNF. Pt would benefit from SNF to progress strength and functional mobility before d/c home. Goals Bed Mobility Goal Independent Transfer Goal Independent,Front Wheeled Walker Gait Goal Independent,Front Wheel Walker Gait Distance 150 Other Goals Pt will be able to ascend and decend 2 steps with walker to allow safe motel entrance. Days to Meet Goals 5 Frequency of Treatment Frequency Of Treatment Twice a Day Treatment Plan Physical Therapy Treatment Plan Bed Mobility Training,Transfer Training,Gait Training, Therapeutic Exercise,Balance Retraining,Discharge Planning, Coordination Retraining Weight Bearing Status Weight Bearing Status Weight Bear as Tolerated Recommendations To Nursing Amount of Assist Needed 1 Person Assist Discharge Recommendations PT Discharge Recommendations Home with 24/7 Assist Available,Home Health,SNF Rehab Other Discharge Recommendations If pt d/cs back to the motel, he will need a RW Transportation Needs at Discharge Private Vehicle,Wheelchair/ Cabulance
--- NOTE | 2023-11-11 11:43 | CM.DPC ---
Addendum entered by Mariola Jarvis CHRISSIE Mendez 11/11/23 14:50: Pt has been declined at [facility] SN[facility]. Still waiting on insurance auth at [facility]. Per [facility], this will be pending until Tuesday, 11/13. Addendum entered by Mariola Jarvis CHRISSIE Mendez 11/11/23 14:23: Per OT, pt is being recommended for SNF at this time. DCP sent a referral to [facility] as they have typically accepted pt's [employer] insurance. Pending insurance authorization and acceptance. Plan: Attempting acceptance at SNF rehab, pt's insurance can be a barrier to acceptance. CM team following. SHAWNA Goins Original Note: DCP Continued: Reviewed EMR and team rounds for pt?s medical status. OT orders have been added today. Per [facility], pt can be recommended for home vs. SNF at this time, pt is able to ambulate on his own but dispo is not stable (lives at a motel). Per [facility], pt is still under review, pending [employer] insurance authorization. Insurance auth might not be available until Tuesday. Pending further PT/OT recommendations, DCP might send another referral to [facility]. Plan: Pending PT/OT recommendations, waiting to CM Team will continue to follow for coordination of discharge plans. SHAWNA Goins
--- NOTE | 2023-11-11 12:41 | PM.PN.1 ---
Subjective Subjective Interval history: He is doing pretty well. He has reasonable pain control and was able to stand up with therapy today. Denies any chest pain, or dyspnea. He was happy with his pain medications. Exam Vital Signs (past 8 hours): - 11/11/23 07:00 11/11/23 08:00 Temperature 97.5 F L Pulse Rate 83 Respiratory Rate 18 Blood Pressure 131/79 Pulse Oximetry 99 99 Oxygen Delivery Method Room Air Oxygen Flow Rate 0 0 Oxygen Delivery Method Room Air Oxygen Flow Rate 0 Narrative Exam Narrative: NAD, alert and oriented. Fluent speech. Lungs are clear, normal rate and effort. Heart is regular, no murmur gallop or rub. Abdomen is soft, non distended. Extremities are free of edema. Objective Labs 11/11/23 04:45 11/11/23 04:45 Labs: Laboratory Results - last 24 hr 11/11/23 04:45 WBC 7.1 RBC 3.04 L Hgb 10.7 L Hct 31.0 L MCV 102.2 H MCH 35.1 H MCHC 34.4 RDW 14.3 Plt Count 172 Neut % (Auto) 73.2 Lymph % (Auto) 12.7 L [place] % (Auto) 13.5 Eos % (Auto) 0.3 L Baso % (Auto) 0.3 Neut # (Auto) 5200 Lymph # (Auto) 900 L [place] # (Auto) 1000 H Eos # (Auto) 0 Baso # (Auto) 0 Sodium 134 L Potassium 3.5 Chloride 104 Carbon Dioxide 24 BUN 12 Creatinine 0.84 Estimated GFR > 60 BUN/Creatinine Ratio 14.3 Glucose 102 H Calcium 8.4 Magnesium 2.3 PFSH Social History household members: family Smoking Status: Current every day smoker alcohol intake: current Assessment & Plan Assessment & Plan narrative: 1. Traumatic left intertrochanteric femure fracture after a fall from a ladder. Present on admission and active. - s/p ORIF. 2. Alcohol use. -No evidence of withdrawal or intoxication. Monitor for now. Add vitamin B1 3. Smoker. -Advised to quit smoking and initiate nicotine patch PLAN: -Bactrim BID 2 Weeks. -ASA BID 6 Weeks -PT/OT/OOB -Discharge planning. SNF verses H/H. He was progressing relatively well with therapy. We will continue to work with him for the next day to see if he is able to progress to the point of discharge and home. Quality VTE Deep Vein Thrombosis/Pulmonary Embolism Present on Admission: No
--- NOTE | 2023-11-11 13:00 | OT.IP.EVAL ---
Current Diagnoses Fracture of unspecified part of neck of left femur, initial encounter for closed fracture (11/08/23) Surgery Performed Operation Date: 11/09/23 15:15 Actual Procedures p Intramedullary Nailing Femur(Left) - Alexandru Downing MD Occupational Therapy Inpatient Evaluation/Re-Eval M1 PT/OT-IP Prior Functional Status Start: 11/10/23 10:46 Freq: NEEDED Status: Active Protocol: Document 11/10/23 12:20 JG (Rec: 11/10/23 13:19 JG [id number]) Medical Review Prior Functional Status Medical History Reviewed Yes Communication WNL Mobility and Gait I Activities of Daily Living and IADL's Worked as a orthopedic physician Social History Household Members family Living Arrangements Other Number of Floors (Floors) One Floor Number of Stairs To Enter/Railing? 2 Home Environment Standard Height Toilet,Walk in Shower Home Equipment Hand Held Shower Employment Status Self-Employed Additional Social History Comment Lives with his brother in a motel. Works as a orthopedic physician on odd jobs M1 PT/OT-IP Prior Functional Status Start: 11/11/23 13:30 Freq: NEEDED Status: Active Protocol: Document 11/11/23 13:30 [facility] (Rec: 11/11/23 13:41 [facility] [id number]) Medical Review Prior Functional Status Medical History Reviewed Yes Communication WNL Mobility and Gait I Activities of Daily Living and IADL's Worked as a orthopedic physician Social History Household Members family Living Arrangements Other Number of Floors (Floors) One Floor Number of Stairs To Enter/Railing? 2 steps and no rails Home Environment Standard Height Toilet,Walk in Shower Home Equipment Shower Seat with Backrest,Hand Held Shower Employment Status Self-Employed Additional Social History Comment Lives with his brother in a motel. Works as a orthopedic physician on odd jobs M2 OT-IP Current Condition Start: 11/11/23 13:30 Freq: Status: Active Protocol: Document 11/11/23 13:30 [facility] (Rec: 11/11/23 13:41 [facility] [id number]) Occupational Therapy Current Condition Current Condition Evaluation Date 11/11/23 Treatment Diagnosis S/P fall , L hip fx IM nailing Diagnosis Onset Date 11/08/23 M3 OT- IP Subjective and Pain Start: 11/11/23 13:30 Freq: Status: Active Protocol: Document 11/11/23 13:30 [facility] (Rec: 11/11/23 13:41 [facility] [id number]) OT- Subjective Occupational Therapy Visit Type Type Initial Evaluation Visit Start Time 12:53 Visit Stop Time 13:32 Occupational Therapy Visit Comments Patient Comments Pt agreed to get up. Patient/Caregiver Goals TO get better. OT Pain Assessment Pain When Pain Assessed During Mobility Pain Present Pain Present Pain Reported Location left knee Intensity 7 M4 OT- IP ADL's Start: 11/11/23 13:30 Freq: Status: Active Protocol: Document 11/11/23 13:30 [facility] (Rec: 11/11/23 13:41 [facility] [id number]) OT [id number] General Evaluation Self-Feeding Ability Independent OT ADL-Grooming Comments OT Grooming Comments Not performed. OT ADL-Oral Care Comments Oral Care Comments Not performed. OT ADL-Dressing General Eval Lower Body Dressing Ability Maximum Assistance Comments OT Dressing Comments Pt not able to lift up his LLE to be able to do his socks and would benefit from LB dressing equipment. OT ADL-Toileting Comments OT Toileting Comments Pt states has been using a urinal at this time. OT ADL-Bathing Comments OT Bathing Comments Pt will benefit from assist and use of a shower chair. M5 OT- IP IADL's Start: 11/11/23 13:30 Freq: Status: Active Protocol: Document 11/11/23 13:30 [facility] (Rec: 11/11/23 13:41 [facility] [id number]) OT-Instrumental Activities of Daily Living Deficits IADL Deficits Identified Deficits Home Safety Awareness Awareness of Need for Assistance at Home Good Awareness Ability to Problem Solve Emergency Able to Problem Solve Situations Home Safety Comments At this time pt will benefit from assist with some ADL and most IADL needs. M6 OT- IP Functional Cognition Start: 11/11/23 13:30 Freq: Status: Active Protocol: Document 11/11/23 13:30 [facility] (Rec: 11/11/23 13:41 [facility] [id number]) Cognitive Factors Limiting Selfcare Function Cognitive Ability Level of Alertness Alert Patient Orientation Name,Age,Birthday,Month,Date, Year,Day of Week,Place, Situation Attention Span Ability Capable of Focused Attention, Capable of Sustained Attention Ability to Follow Commands Able to Follow One Step Commands Cognitive Comments Cognitive Assessment Comments Pt able to follow commands for ADL and mobility needs. OT- Vision and Hearing OT- Hearing Assessment OT- Hearing Assessment WFL OT- Vision Assessment Visual Acuity Glasses All The Time,Glasses For Reading Visual Attentiveness WFL Occular Pursuits WFL M7 OT- IP Mobility and Balance Start: 11/11/23 13:30 Freq: Status: Active Protocol: Document 11/11/23 13:30 [facility] (Rec: 11/11/23 13:41 [facility] [id number]) OT- Bed Mobility Assessment Supine to Sit Supine to Sit Assist Moderate Assistance Sit to Supine Sit to Supine Assist Moderate Assistance Scooting Scooting to Edge of Bed Standby Assistance OT-Transfer Assessment Sit to and From Stand Sit to and from Stand Standby Assistance,Minimal Assistance Transfers Transfer Ability Standby Assistance,Contact Guard Assistance,Minimal Assistance Technique Transfer Destination Bed Transfer Technique Stand Step Pivot Devices Transfer Assistive Devices Gait Belt,Front Wheeled Walker Comments Mobility Comments Pt not able to lift his LLE up for bed mobility needs even with use of leg brake linings coater and also with his hands at this time and needing MODA overall for bed mobility . Pt getting back to bed also having lots of pain and needing assist with his LLE as well. OT- Balance Assessment Sitting Balance and Reactions Static Sitting Balance Ability Normal Dynamic Sitting Balance Ability Good Standing Balance and Reactions Static Standing Balance Ability Fair Dynamic Standing Balance Ability Poor Comments Other Balance Tests/Deviations/Treatment Pt heavily relies on his BUE : to be able to move and not putting much weight through his LLE at this time. Pt tends to limp and needing assist when trying to walk symmetrically with the FWW. M8 OT- IP Objective Assessments Start: 11/11/23 13:30 Freq: Status: Active Protocol: Document 11/11/23 13:30 [facility] (Rec: 11/11/23 13:41 [facility] [id number]) OT Gross Range of Motion Upper Extremity Range of Motion Assessment Within Functional Limits OT Strength Upper Extremity Strength Assessment Within Functional Limits Comments Strength Comments Pt missing part of left 5th digit. M9 OT- IP Assessment and Plan Start: 11/11/23 13:30 Freq: Status: Active Protocol: Document 11/11/23 13:30 [facility] (Rec: 11/11/23 13:41 [facility] [id number]) OT Summary Assessment and Plan Potential Rehabilitation Potential Excellent Analytic Complexity at Evaluation Low Summary OT Impairments Pain,Strength,Balance, Functional Mobility,Dressing, Toileting,Bathing,Toilet Transfers,Shower Transfers, Activity Tolerance Progress Towards Goals Slow Progress due to Pain,Slow Progress due to Medical Issues,Slow Progress due to Activity Tolerance Assessment Summary Pt low complexity and main barriers are pain, now needing assist for all LB dressing needs, bed mobility, assist to stand from lower surfaces, tends to heavily rely on his BUE on the FWW in order to move as pt not able to place much weight on his LLE at this time. Pt is far from his baseline of independent with all needs and working as a orthopedic physician. Pt will greatly benefit from skilled rehab at this time to help get back to his prior level of care of begin completely independent and working. Pt is cooperative and very motivated to get better. Goals Grooming Goal Independent Dressing Goal Independent,Screener Operator,Sock Aid Toileting Goal Independent Bathing Goal Independent Toilet Transfer Goal Independent Shower Transfer Goal Independent Days to Meet Goals 20 Frequency of Treatment Frequency Of Treatment Once a Day Treatment Plan OT Treatment Plan ADL Training,Functional Mobility,Patient/Family Education,Discharge Planning Discharge Recommendations OT Discharge Recommendations SNF Rehab Transportation Needs at Discharge Wheelchair/Cabulance
--- NOTE | 2023-11-11 14:55 | PT.IPTN ---
Current Diagnoses Fracture of unspecified part of neck of left femur, initial encounter for closed fracture (11/08/23) Surgery Performed Operation Date: 11/09/23 15:15 Actual Procedures p Intramedullary Nailing Femur(Left) - Alexandru Downing MD Physical Therapy Treatment Note M2 PT-IP Current Condition Start: 11/10/23 10:46 Freq: NEEDED Status: Active Protocol: Document 11/10/23 12:20 JG (Rec: 11/10/23 13:19 JG [id number]) Physical Therapy Current Condition Current Condition Evaluation Date 11/10/23 Treatment Diagnosis Fall, left hip fracture and IM nailing M3 PT-IP Subjective Start: 11/10/23 10:46 Freq: NEEDED Status: Active Protocol: Document 11/11/23 14:55 AB (Rec: 11/11/23 15:45 AB [id number]) Subjective Physical Therapy Visit Type Type Treatment Note Visit Start Time 14:55 Visit Stop Time 15:30 Number of PURCHASING ENGINEER Visits 0 Physical Therapy Visit Comments Patient Comments agreeable to do PT Therapy Pain Assessment Pain When Pain Assessed At Rest Pain Present Pain Present Pain Reported Location left knee Scale Used Numeric (0 - 10) Left hip Intensity 3 Scale Used Numeric (0 - 10) Pain Management Techniques Distraction,Modification of Treatment,Re-positioning, Timing of Activity with Medications M4 PT-IP Mobility and Gait Start: 11/10/23 10:46 Freq: NEEDED Status: Active Protocol: Document 11/11/23 14:55 AB (Rec: 11/11/23 15:45 AB [id number]) PT-Bed Mobility Assessment Supine to Sit Supine to Sit Standby Assistance Sit to Supine Sit to Supine Standby Assistance PT-Transfer Assessment Sit to and From Stand Sit to and from Stand Contact Guard Assistance,1 Person Assistance,Use of Upper Extremities Equipment Transfer Assistive Device Gait Belt,Front Wheeled Walker Orthotic/Prosthetic Devices or Brace: No Transfer Ability Level of Assist Contact Guard Assistance,1 Person Assistance,Use of Upper Extremities Comments Mobility Comments pt supine in bed and agreeable to do PT. pt completed supine to sit SBA with HOB elevated. pt uses UE to assist with LLE movement. pt completed sit to stand CGA and ambulated in room using FWW ~ 35 ft x 2 CGA to min A. pt presents with heavy UE use on walker. demonstrates unsteadiness with ambulation and needing cues for L quads activation. pt requested to go back to bed. completed sit to supine SBA. pt used RLE to assist LLE to elevated to bed. positioned pt in bed. educated pt with HEP. post-op folder provided and reviewed contents to pt. call light and table placed within reach. Gait Assessment Gait Gait Assistance Required: Contact Guard Assist,Minimum Assistance,1 Person Assist Distance (Feet) 35 Able to Maintain Weight Bearing Status Yes During Gait Assistive Devices Assistive Device Gait Belt,Front Wheeled Walker Orthotic/Prosthetic Devices or Brace: No Gait Deviations General Gait Pattern Decreased Stride Length, Decreased Feet Clearance Factors Limiting Gait Function Factors Limiting Gait Function Decreased Activity Tolerance, Decreased Strength,Limited Range of Motion,Pain,Poor Balance,Poor Safety Awareness M5 PT-IP Objective Assessments Start: 11/10/23 10:46 Freq: NEEDED Status: Active Protocol: Document 11/10/23 12:20 JG (Rec: 11/10/23 13:19 JG [id number]) Orientation Orientation/Cognition Level of Alertness Alert Orientation Name,Age,Birthday,Month,Date, Year,Day of Week,Place, Situation Language Function Ability No Deficits Noted Safety Awareness Decreased Safety Awareness Memory Description No Deficits Noted Comments Cues for hand placement with transfers Gross Range of Motion Upper Extremity ROM Assessment Within Functional Limits Lower Extremity ROM Assessment Left Impaired Impairments Minimal HS and AP on the left Strength Upper Extremity Strength Assessment Within Functional Limits Lower Extremity Strength Assessment Left Impaired Comments Strength Comments RLE normal and left ankle appears functional: deferred left knee and hip post fracture and surgery Other Assessments Other Other Assessments LLE edema changes noted M6 PT-IP Treatment Start: 11/10/23 10:46 Freq: NEEDED Status: Active Protocol: Document 11/11/23 14:55 AB (Rec: 11/11/23 15:45 AB [id number]) Physical Therapy Treatment Education Education Provided Post-Op Packet,Safety M7 PT-IP Assessment and Plan Start: 11/10/23 10:46 Freq: NEEDED Status: Active Protocol: Document 11/11/23 14:55 AB (Rec: 11/11/23 15:45 AB [id number]) PT Summary Assessment and Plan Potential Rehabilitation Potential Fair Summary Impairments Pain,ROM,Strength,Balance, Coordination,Sensation,Tone, Cognition,Bed Mobility, Transfers,Gait,Activity Tolerance Progress Towards Goals Slow Progress due to Pain,Slow Progress due to Activity Tolerance Assessment Summary pt progressing slowly with mobility using FWW. pt able to ambulate using FWW CGA to min A and max cues for steadiness and safety. pt lives with his brother but stated that his brother still recoverying from his heart surgery and will not be able to assist him. pt has 2 steps without rails to get to his apartment and currently is not appropriate to do stairs. pt relies a lot on UE support to the walker during ambulation and needing assist and cues for LLE steadiness. pt will benefit from SNF rehab. Goals Bed Mobility Goal Independent Transfer Goal Independent,Front Wheeled Walker Gait Goal Independent,Front Wheel Walker Gait Distance 150 Other Goals up/down 2 steps mod I Days to Meet Goals 10 Treatment Plan Physical Therapy Treatment Plan Bed Mobility Training,Transfer Training,Gait Training, Therapeutic Exercise,Balance Retraining,Post Op Education, Discharge Planning,Hot or Cold Pack,Neuromuscular Re-ed, Coordination Retraining,Manual Therapy Weight Bearing Status Weight Bearing Status Weight Bear as Tolerated Recommendations To Nursing Amount of Assist Needed 1 Person Assist Discharge Recommendations PT Discharge Recommendations SNF Rehab Transportation Needs at Discharge Private Vehicle,Wheelchair/ Cabulance
[2023-11-11 20:00] VITALS: BP 108/72; PULSE 102; RESP 17; TEMP 36; O2SAT 98
[2023-11-11 20:20] VITALS: O2SAT 98
[2023-11-11] MEDS: cephALEXin 250 MG CAPSULE 500 MG PO (20:22)
[2023-11-11] MEDS: SENNOSIDES 8.6 MG TABLET 17.2 MG PO (20:22)
[2023-11-12] MEDS: OXYCODONE IR 5 MG TABLET 10 MG PO ×6 (03:58→20:45)
[2023-11-12] MEDS: ACETAMINOPHEN 325 MG TABLET 650 MG PO ×3 (03:58→20:44)
[2023-11-12] MEDS: PANTOPRAZOLE DR 40 MG TABLET PO (06:47)
[2023-11-12 07:00] VITALS: O2SAT 97
--- NOTE | 2023-11-12 08:06 | P.PN_ITS ---
Subjective Subjective Interval history: He is doing well. He has good pain control. Wound is doing well. No leg swelling or pain. Exam Vital Signs (past 8 hours): Oxygen Delivery Method Room Air Oxygen Flow Rate 0 Const Other: NAD, alert and oriented. Fluent speech. Lungs are clear, normal rate and effort. Heart is regular, no murmur gallop or rub. Abdomen is soft, non distended. Extremities are free of edema. Objective Labs 11/11/23 04:45 11/11/23 04:45 [facility] Social History household members: family Smoking Status: Current every day smoker alcohol intake: current Assessment & Plan Assessment & Plan narrative: 1. Traumatic left intertrochanteric femure fracture after a fall from a ladder. Present on admission and active. - s/p ORIF. - improving with PT/OT 2. Alcohol use. Stable and no evidence of withdrawal. -No evidence of withdrawal or intoxication. Monitor for now. Add vitamin B1 3. Smoker. Nicotine dependence. Stable. -Advised to quit smoking and initiate nicotine patch PLAN: -Bactrim BID 2 Weeks. -ASA BID 6 Weeks, DVT prophylaxis. -PT/OT/OOB -Discharge planning. SNF verses H/H. He is progressing relatively well with therapy. -will see how he does with PT today for discharge planning. RICARDO: 11/12, SNF. Quality VTE Deep Vein Thrombosis/Pulmonary Embolism Present on Admission: No
[2023-11-12] MEDS: ASPIRIN EC 81 MG TABLET PO ×2 (08:39→20:45)
[2023-11-12] MEDS: cephALEXin 250 MG CAPSULE 500 MG PO ×3 (08:39→20:45)
[2023-11-12] MEDS: DOCUSATE 100 MG CAPSULE PO (08:39)
[2023-11-12] MEDS: SODIUM CHLORIDE 0.9% FLUSH 10 ML IV ×2 (08:40→20:45)
[2023-11-12] MEDS: NICOTINE 14 PATCH 14 MG TOP (08:40)
[2023-11-12 08:54] VITALS: BP 126/78; PULSE 91; RESP 16; TEMP 36.4; O2SAT 97
--- NOTE | 2023-11-12 08:56 | PT.IPTN ---
Current Diagnoses Fracture of unspecified part of neck of left femur, initial encounter for closed fracture (11/08/23) Surgery Performed Operation Date: 11/09/23 15:15 Actual Procedures p Intramedullary Nailing Femur(Left) - Alexandru Downing MD Physical Therapy Treatment Note M2 PT-IP Current Condition Start: 11/10/23 10:46 Freq: NEEDED Status: Active Protocol: Document 11/10/23 12:20 JG (Rec: 11/10/23 13:19 JG [id number]) Physical Therapy Current Condition Current Condition Evaluation Date 11/10/23 Treatment Diagnosis Fall, left hip fracture and IM nailing M3 PT-IP Subjective Start: 11/10/23 10:46 Freq: NEEDED Status: Active Protocol: Document 11/12/23 09:24 TS (Rec: 11/12/23 09:45 TS [id number]) Subjective Physical Therapy Visit Type Type Treatment Note Visit Start Time 08:56 Visit Stop Time 09:20 Number of PATIENT FINANCIAL SERVICES COORDINATOR Visits 1 Physical Therapy Visit Comments Patient Comments Pt found resting in bed, reports less pain this morning ,he s agreeable to PT. Therapy Pain Assessment Pain When Pain Assessed During Mobility Pain Present Pain Present Pain Reported M4 PT-IP Mobility and Gait Start: 11/10/23 10:46 Freq: NEEDED Status: Active Protocol: Document 11/12/23 09:24 TS (Rec: 11/12/23 09:45 TS [id number]) PT-Bed Mobility Assessment Supine to Sit Supine to Sit Standby Assistance Scooting Scooting to Edge of Bed Standby Assistance PT-Transfer Assessment Sit to and From Stand Sit to and from Stand Standby Assistance Equipment Transfer Assistive Device Gait Belt,Front Wheeled Walker Orthotic/Prosthetic Devices or Brace: No Comments Mobility Comments Supine to sit SBA with HOB elevated, pt uses RLE to assist LLE out of bed. STS with FWW SBA with single UE on FWW. He ambulated ~60'SBA with heavy UE assist on FWW. He performed steps x1 with BUE support and x2 with single rail support. Pt was left in chair, all needs met. Gait Assessment Gait Gait Assistance Required: Standby Assistance Distance (Feet) 60 Able to Maintain Weight Bearing Status Yes During Gait Assistive Devices Assistive Device Gait Belt,Front Wheeled Walker Orthotic/Prosthetic Devices or Brace: No Gait Deviations General Gait Pattern Decreased Stride Length, Decreased Feet Clearance Factors Limiting Gait Function Factors Limiting Gait Function Decreased Activity Tolerance, Decreased Strength,Limited Range of Motion,Pain,Poor Balance,Poor Safety Awareness Comments Gait Comments See mobility comments Stair Climbing Assessment Evaluation Level of Assist On Stairs Contact Guard Assistance,1 Person Assistance Devices Stair Climbing Assistive Devices Left Railing,Right Railing Technique/Endurance Stair Climbing Direction Ascend and Descend Stair Climbing Technique Step to Step Number of Steps Climbed 3 PT-Balance Assessment Sitting Balance and Reactions Static Sitting Balance Ability Normal Dynamic Sitting Balance Ability Good Standing Balance and Reactions Static Standing Balance Ability Fair Dynamic Standing Balance Ability Fair Device Used RW M5 PT-IP Objective Assessments Start: 11/10/23 10:46 Freq: NEEDED Status: Active Protocol: Document 11/10/23 12:20 JG (Rec: 11/10/23 13:19 JG [id number]) Orientation Orientation/Cognition Level of Alertness Alert Orientation Name,Age,Birthday,Month,Date, Year,Day of Week,Place, Situation Language Function Ability No Deficits Noted Safety Awareness Decreased Safety Awareness Memory Description No Deficits Noted Comments Cues for hand placement with transfers Gross Range of Motion Upper Extremity ROM Assessment Within Functional Limits Lower Extremity ROM Assessment Left Impaired Impairments Minimal HS and AP on the left Strength Upper Extremity Strength Assessment Within Functional Limits Lower Extremity Strength Assessment Left Impaired Comments Strength Comments RLE normal and left ankle appears functional: deferred left knee and hip post fracture and surgery Other Assessments Other Other Assessments LLE edema changes noted M6 PT-IP Treatment Start: 11/10/23 10:46 Freq: NEEDED Status: Active Protocol: Document 11/12/23 09:24 TS (Rec: 11/12/23 09:45 [id number]) Physical Therapy Treatment Education Education Provided Post-Op Packet,Safety M7 PT-IP Assessment and Plan Start: 11/10/23 10:46 Freq: NEEDED Status: Active Protocol: Document 11/12/23 09:24 TS (Rec: 11/12/23 09:45 TS [id number]) PT Summary Assessment and Plan Potential Rehabilitation Potential Fair Summary Impairments Pain,ROM,Strength,Balance, Coordination,Sensation,Tone, Cognition,Bed Mobility, Transfers,Gait,Activity Tolerance Progress Towards Goals Slow Progress due to Pain Assessment Summary Pt continues to ambulate shorts distances in room with heavy UE assist on FWW. He progressed to stairs x3, x1 with B handrails and x2 with single rail. PT is recommending SNF at this time. Goals Bed Mobility Goal Independent Transfer Goal Independent,Front Wheeled Walker Gait Goal Independent,Front Wheel Walker Gait Distance 150 Other Goals up/down 2 steps mod I Days to Meet Goals 10 Treatment Plan Physical Therapy Treatment Plan Bed Mobility Training,Transfer Training,Gait Training, Therapeutic Exercise,Balance Retraining,Post Op Education, Discharge Planning,Hot or Cold Pack,Neuromuscular Re-ed, Coordination Retraining,Manual Therapy Weight Bearing Status Weight Bearing Status Weight Bear as Tolerated Recommendations To Nursing Amount of Assist Needed 1 Person Assist Discharge Recommendations PT Discharge Recommendations SNF Rehab Transportation Needs at Discharge Private Vehicle,Wheelchair/ Cabulance
--- NOTE | 2023-11-12 09:46 | PM.PNPO.1 ---
Subjective Subjective Date Patient Seen: 11/12/23 Time Patient Seen: 09:46 Interval history: Pt sitting up comfortably in chair. PT continues to recommend SNF, in review of CM notes, this will likely be on Tuesday at the earliest. Pt says he has a brother who can help him, but he has his own medical issues. Exam Vital Signs (past 8 hours): - 11/12/23 07:00 11/12/23 08:54 Temperature 97.6 F Pulse Rate 91 H Respiratory Rate 16 Blood Pressure 126/78 Pulse Oximetry 97 97 Oxygen Delivery Method Room Air Oxygen Flow Rate 0 0 Oxygen Delivery Method Room Air Oxygen Flow Rate 0 Narrative Exam Narrative: 5/5 strength in hip flexors, quadriceps, hamstrings, DF, PF, EHL on left. Sensation to light touch intact throughout LLE. Calf soft and compressible. Dressings CDI. Objective Labs 11/11/23 04:45 11/11/23 04:45 PFSH Social History household members: family Smoking Status: Current every day smoker alcohol intake: current Assessment & Plan Post-op Assessment and plan (1) Closed hip fracture: Assessment and Plan narrative: 1) Weightbearing as tolerated to left leg. 2) Aspirin 81mg BID x 4 weeks for VTE prophylaxis. 3) Bactrim DS BID x total of 28 doses for infection prevention. 4) Pain control, disposition per hospitalist service. 5) F/u in ortho office in 2 weeks for wound check, in 6 weeks w/ Dr Downing for repeat imaging. Postoperative Procedures: Procedures Operation Date: 11/09/23 15:15 Actual Procedure Side Surgeon p Intramedullary Nailing Femur Left Alexandru Downing MD Postoperative day: 2 Quality VTE Deep Vein Thrombosis/Pulmonary Embolism Present on Admission: No
--- NOTE | 2023-11-12 13:43 | PT.IPTN ---
Current Diagnoses Fracture of unspecified part of neck of left femur, initial encounter for closed fracture (11/08/23) Surgery Performed Operation Date: 11/09/23 15:15 Actual Procedures p Intramedullary Nailing Femur(Left) - Alexandru Downing MD Physical Therapy Treatment Note M2 PT-IP Current Condition Start: 11/10/23 10:46 Freq: NEEDED Status: Active Protocol: Document 11/10/23 12:20 JG (Rec: 11/10/23 13:19 JG [id number]) Physical Therapy Current Condition Current Condition Evaluation Date 11/10/23 Treatment Diagnosis Fall, left hip fracture and IM nailing M3 PT-IP Subjective Start: 11/10/23 10:46 Freq: NEEDED Status: Active Protocol: Document 11/12/23 14:19 TS (Rec: 11/12/23 14:30 TS [id number]) Subjective Physical Therapy Visit Type Type Treatment Note Visit Start Time 13:43 Visit Stop Time 14:13 Number of SHIRT CLOSER Visits 2 Physical Therapy Visit Comments Patient Comments Pt found resting in chair, is agreeable to PT. Therapy Pain Assessment Pain When Pain Assessed During Mobility Pain Present Pain Present Pain Reported M4 PT-IP Mobility and Gait Start: 11/10/23 10:46 Freq: NEEDED Status: Active Protocol: Document 11/12/23 14:19 TS (Rec: 11/12/23 14:30 TS [id number]) PT-Bed Mobility Assessment Sit to Supine Sit to Supine Standby Assistance PT-Transfer Assessment Sit to and From Stand Sit to and from Stand Standby Assistance Equipment Transfer Assistive Device Gait Belt,Front Wheeled Walker Orthotic/Prosthetic Devices or Brace: No Comments Mobility Comments STS with FWW SBA, pt continues to be impulsive to move before therapist is ready with FWW. He ambulated ~150' in hallway SBA with emerging step thru gait. He performed steps with SPC and counter support CGA x3, had no buckling or LOB . Sit to supine SBA with RLE hooked underneath LLE ankle. SW in room to discusss d/c options with pt. SNF looking unlikely at this point. Pt may d/c tomorrow or Tuesday if auth for rehab is not secured. Caregiver training set up for 11:00AM tomorrow for pt's brother. Gait Assessment Gait Gait Assistance Required: Standby Assistance Distance (Feet) 150 Able to Maintain Weight Bearing Status Yes During Gait Assistive Devices Assistive Device Gait Belt,Front Wheeled Walker Orthotic/Prosthetic Devices or Brace: No Gait Deviations General Gait Pattern Decreased Stride Length, Decreased Feet Clearance Factors Limiting Gait Function Factors Limiting Gait Function Decreased Activity Tolerance, Decreased Strength,Limited Range of Motion,Pain,Poor Balance,Poor Safety Awareness Comments Gait Comments See mobility comments Stair Climbing Assessment Evaluation Level of Assist On Stairs Contact Guard Assistance,1 Person Assistance Devices Stair Climbing Assistive Devices Straight Cane,Right Railing Technique/Endurance Stair Climbing Direction Ascend and Descend Stair Climbing Technique Step to Step Number of Steps Climbed 3 PT-Balance Assessment Sitting Balance and Reactions Static Sitting Balance Ability Normal Dynamic Sitting Balance Ability Good Standing Balance and Reactions Static Standing Balance Ability Fair Dynamic Standing Balance Ability Fair Device Used RW M5 PT-IP Objective Assessments Start: 11/10/23 10:46 Freq: NEEDED Status: Active Protocol: Document 11/10/23 12:20 JG (Rec: 11/10/23 13:19 J [id number]) Orientation Orientation/Cognition Level of Alertness Alert Orientation Name,Age,Birthday,Month,Date, Year,Day of Week,Place, Situation Language Function Ability No Deficits Noted Safety Awareness Decreased Safety Awareness Memory Description No Deficits Noted Comments Cues for hand placement with transfers Gross Range of Motion Upper Extremity ROM Assessment Within Functional Limits Lower Extremity ROM Assessment Left Impaired Impairments Minimal HS and AP on the left Strength Upper Extremity Strength Assessment Within Functional Limits Lower Extremity Strength Assessment Left Impaired Comments Strength Comments RLE normal and left ankle appears functional: deferred left knee and hip post fracture and surgery Other Assessments Other Other Assessments LLE edema changes noted M6 PT-IP Treatment Start: 11/10/23 10:46 Freq: NEEDED Status: Active Protocol: Document 11/12/23 14:19 TS (Rec: 11/12/23 14:30 TS [id number]) Physical Therapy Treatment Education Education Provided Post-Op Packet,Safety M7 PT-IP Assessment and Plan Start: 11/10/23 10:46 Freq: NEEDED Status: Active Protocol: Document 11/12/23 14:19 TS (Rec: 11/12/23 14:30 TS [id number]) PT Summary Assessment and Plan Potential Rehabilitation Potential Fair Summary Impairments Pain,ROM,Strength,Balance, Coordination,Sensation,Tone, Cognition,Bed Mobility, Transfers,Gait,Activity Tolerance Progress Towards Goals Progressing Toward Goals Assessment Summary Aneesh is making progress with his mobility. He progressed ambulation to ~150'SBA with FWW. He continues to be SBA for STS and all bed mobility. He performed steps x3 with CGA and use of SPC and counter support. Caregiver training at 11:00AM for tomorrow for brother. Pt reports brother had heart surgery a few months but can probably help him some. Pt's mother is going to bring him a FWW and cane but she possibly might not be here until Tuesday due to living in [place]. PT will continue to recommend SNF. Goals Bed Mobility Goal Independent Transfer Goal Independent,Front Wheeled Walker Gait Goal Independent,Front Wheel Walker Gait Distance 150 Other Goals up/down 2 steps mod I Days to Meet Goals 10 Treatment Plan Physical Therapy Treatment Plan Bed Mobility Training,Transfer Training,Gait Training, Therapeutic Exercise,Balance Retraining,Post Op Education, Discharge Planning,Hot or Cold Pack,Neuromuscular Re-ed, Coordination Retraining,Manual Therapy Weight Bearing Status Weight Bearing Status Weight Bear as Tolerated Recommendations To Nursing Amount of Assist Needed 1 Person Assist Discharge Recommendations PT Discharge Recommendations SNF Rehab Equipment Needed for Home Before Will need FWW, possibly cane Discharge for stairs. Has toilet riser. Transportation Needs at Discharge Private Vehicle,Wheelchair/ Cabulance
--- NOTE | 2023-11-12 14:44 | CM.DPC ---
DCP Home Planning Cont: Per Ortho PA, pt making progress and anticipate discharge in likely 1-2 days. Per CLAIM AGENT, pt making progress and was able to ambulate with FWW and complete stairs without much physical assist but recommending likely return with brother and HH. HH could be a barrier due to pt not having an established PCP to follow for orders and concerns. SW met bedside with pt and CLAIM AGENT and discussed the current barriers to SNF being his [facility] Medicaid insurance and their low reimbursement rate and [facility] have declined and [facility] reviewing to determine if they would be willing to submit for one time auth with low reimbursement. SW discussed that likely discharge plan would not involve SNF and will need backup plan. Pt confirms his parents live in [place] and he does not think he could d/c to their house for a couple weeks for additional assist. Pt states they have friends in town but not the kind where he could stay at their house. But pt confirms that he only has 1-2 steps to enter his apartment type hotel room he lives at with his brother at [place] and then everything is on one level. Pt states his mom is coming Sun or Mon and plans to bring a FWW she has that they do not need at this time and the [facility] apt/hotel room already has a bath bench/seat that pt can use. Pt agreeable to calling his brother who visits every day to arrive tomorrow Sun around 1100 to participate in CG training. SW discussed the barrier to HH as pt does not have an established PCP and currently no scheduled date for establish care with PCP. Pt acknowledged understanding but if HH willing to accept his [facility] without a PCP yet then he would be agreeable. SW made HH referral to both [facility] to request review to see if they can accept with no PCP and [facility] insurance as [facility] requires PCP. [facility] reviewing. Plan: SW to follow for PT CG tranining with pt and brother tomorrow Sun 11/12 1100 to confirm plan of return to [facility] with brother assist. SW to confirm if [facility] or [facility] could accept [facility] without PCP. Sravanthi Kessler, CHRISSIE
[2023-11-12 19:00] VITALS: O2SAT 97
[2023-11-12 19:26] VITALS: BP 134/81; PULSE 98; RESP 20; TEMP 37.2; O2SAT 97
[2023-11-12 20:07] VITALS: BP 141/84; PULSE 88; RESP 16; TEMP 36.6; O2SAT 100
[2023-11-13] MEDS: OXYCODONE IR 5 MG TABLET 10 MG PO ×7 (02:17→23:49)
[2023-11-13] MEDS: PANTOPRAZOLE DR 40 MG TABLET PO (06:55)
[2023-11-13 07:00] VITALS: O2SAT 98
--- NOTE | 2023-11-13 08:06 | PM.PN.1 ---
Subjective Subjective Interval history: Summary: He was admitted with a hip fracture, status post ORIF. Difficulty getting approval and acceptance to senior living facility. He is doing well. He is good pain control. He is able to ambulate with physical therapy. His ensure did not preop for a facility and he was not accepted to a facility. He lives in a motel nearby with his brother. He was going to the bathroom well and has no issues with constipation. The plan is that his family has a sibling equipment that we will be available Tuesday and he will likely just discharge back to his motel with a walker and other DME on Tuesday. He will continue work with physical therapy until then. Exam Vital Signs (past 8 hours): Oxygen Delivery Method Room Air Oxygen Flow Rate 0 Narrative Exam Narrative: NAD, alert and oriented. Fluent speech. Lungs are clear, normal rate and effort. Heart is regular, no murmur gallop or rub. Abdomen is soft, non distended. Extremities are free of edema. Left hip looks great. There is no swelling or hematoma. Wounds are dressed. Objective Labs 11/11/23 04:45 11/11/23 04:45 [facility] Social History household members: family Smoking Status: Current every day smoker alcohol intake: current Assessment & Plan Assessment & Plan narrative: 1. Traumatic left intertrochanteric femure fracture after a fall from a ladder. Present on admission and active. - s/p ORIF. - improving with PT/OT 2. Alcohol use. Stable and no evidence of withdrawal. -No evidence of withdrawal or intoxication. Monitor for now. Add vitamin B1 3. Smoker. Nicotine dependence. Stable. -Advised to quit smoking and initiate nicotine patch PLAN: -Bactrim BID 2 Weeks. -ASA BID 6 Weeks, DVT prophylaxis. -PT/OT/OOB RICARDO: 11/14, home to [facility] in [place] where he lives with brother. Family has assembling walker another needed equipment. Equipment should be available by Tuesday. He is full resuscitation. Inpatient status. Quality VTE Deep Vein Thrombosis/Pulmonary Embolism Present on Admission: No
[2023-11-13 08:47] VITALS: BP 136/79; PULSE 93; RESP 19; TEMP 36.9; O2SAT 98
[2023-11-13] MEDS: polyethylene glycoL 3350 17 GM POWD.PACK PO (09:22)
[2023-11-13] MEDS: ASPIRIN EC 81 MG TABLET PO ×2 (09:22→20:31)
[2023-11-13] MEDS: DOCUSATE 100 MG CAPSULE PO ×2 (09:22→20:31)
[2023-11-13] MEDS: NICOTINE 14 PATCH 14 MG TOP (09:22)
[2023-11-13] MEDS: cephALEXin 250 MG CAPSULE 500 MG PO ×3 (09:22→20:31)
[2023-11-13] MEDS: SODIUM CHLORIDE 0.9% FLUSH 10 ML IV (09:23)
[2023-11-13 09:32] LABS: Hemoglobin 11.2 g/dL (13.5-17.5); Mean Corpuscular HGB Conc 33.9 % (30-36); Mean Corpuscular Hemoglobin 34.7 PG (26-34); Mean Corpuscular Volume 102.4 fL (80-100); Platelet Count 257 X10^3/uL (150-400); Red Blood Cell Count 3.23 X10^6/uL (4.5-5.9); Red Cell Distribution Width 14.1 % (11.6-14.8); White Blood Cell Count 5.1 X10^3/uL (4.5-11.0)
[2023-11-13 09:46] LABS: BUN Creatinine Ratio 16.7 (6-22); Blood Urea Nitrogen 12 mg/dL (9-20); Carbon Dioxide 30 mmol/L (22-32); Chloride 102 mmol/L (98-107); Estimated Glomerular Filt Rate > 60 mL/min (>60); Glucose 114 mg/dL (70-100); HEMOLYSIS < 15 (0-50); Potassium 4.4 mmol/L (3.4-5.1); Sodium 135 mmol/L (137-145)
[2023-11-13] MEDS: ACETAMINOPHEN 325 MG TABLET 650 MG PO ×2 (11:20→18:28)
--- NOTE | 2023-11-13 11:53 | PT.IPTN ---
Addendum entered and electronically signed by Beverly Iniguez PT 11/13/23 11:54: PT provides direct superv with SPT Original Note: Current Diagnoses Fracture of unspecified part of neck of left femur, initial encounter for closed fracture (11/08/23) Surgery Performed Operation Date: 11/09/23 15:15 Actual Procedures p Intramedullary Nailing Femur(Left) - Alexandru Downing MD Physical Therapy Treatment Note M2 PT-IP Current Condition Start: 11/10/23 10:46 Freq: NEEDED Status: Active Protocol: Document 11/10/23 12:20 JG (Rec: 11/10/23 13:19 JG [id number]) Physical Therapy Current Condition Current Condition Evaluation Date 11/10/23 Treatment Diagnosis Fall, left hip fracture and IM nailing M3 PT-IP Subjective Start: 11/10/23 10:46 Freq: NEEDED Status: Active Protocol: Document 11/13/23 10:45 JG (Rec: 11/13/23 11:52 JG [id number]) Subjective Physical Therapy Visit Type Type Treatment Note Visit Start Time 10:45 Visit Stop Time 11:10 Number of MANAGER POLICY Visits 0 Physical Therapy Visit Comments Patient Comments Pt says that he just took pain meds from [facility] before PT arrival and that his hip is feeling alright Therapy Pain Assessment Pain When Pain Assessed During Mobility Pain Present Pain Present Pain Reported Location Left hip Intensity 7 Scale Used Numeric (0 - 10) Description With Movement Pain Behaviors Guarding Pain Management Techniques Timing of Activity with Medications M4 PT-IP Mobility and Gait Start: 11/10/23 10:46 Freq: NEEDED Status: Active Protocol: Document 11/13/23 10:45 JG (Rec: 11/13/23 11:52 JG [id number]) PT-Bed Mobility Assessment Supine to Sit Supine to Sit Independent Scooting Scooting to Edge of Bed Independent PT-Transfer Assessment Sit to and From Stand Sit to and from Stand Standby Assistance Equipment Transfer Assistive Device Gait Belt,Front Wheeled Walker Orthotic/Prosthetic Devices or Brace: No Transfers Transfer Destination Chair Transfer Technique Ambulation Transfer Ability Level of Assist Standby Assistance,Use of Upper Extremities Comments Mobility Comments Pt was supine in bed with HOB elelvated upon PT arrival. Pt agreeable to PT. Pt was able to transfer supine to EOB I with HOB lowered. Gait Assessment Gait Gait Assistance Required: Standby Assistance Distance (Feet) 150 Able to Maintain Weight Bearing Status Yes During Gait Assistive Devices Assistive Device Gait Belt,Front Wheeled Walker Orthotic/Prosthetic Devices or Brace: No Gait Deviations General Gait Pattern Decreased Stride Length, Decreased Feet Clearance Factors Limiting Gait Function Factors Limiting Gait Function Decreased Activity Tolerance, Decreased Strength,Limited Range of Motion,Pain,Poor Balance Comments Gait Comments Pt requires SBA to gait train in hallway with RW. Pt demonstrates step-to, antalgic pattern with heavy UE support on the RW and so rollator not tried. Short 5' gait from w/c to steps with cane in right hand required tactile assitance of CGA to min A d/t left LLE buckling with weight acceptance and less stability. Stair Climbing Assessment Evaluation Level of Assist On Stairs Contact Guard Assistance, Minimal Assistance,1 Person Assistance Devices Stair Climbing Assistive Devices Straight Cane,Front Wheel Walker Technique/Endurance Stair Climbing Direction Ascend and Descend Stair Climbing Technique Step to Step Number of Steps Climbed 3 Stair Climbing Set # Repetitions (reps) 3 Comments Stair Climbing Comments Pt and brother were educated on stair training using a FWW backwards and SPC forwards for ascend. Pt demonstrated a lack of balance and stability using a SPC compared to the FWW but is very verbal about wishing to use the cane. Pt also communicates that brother is pulling up on gait belt when he assists pt with stair training with the cane. PT-Balance Assessment Sitting Balance and Reactions Static Sitting Balance Ability Normal Dynamic Sitting Balance Ability Good Standing Balance and Reactions Static Standing Balance Ability Good Dynamic Standing Balance Ability Fair Device Used RW M5 PT-IP Objective Assessments Start: 11/10/23 10:46 Freq: NEEDED Status: Active Protocol: Document 11/10/23 12:20 (Rec: 11/10/23 13:19 [id number]) Orientation Orientation/Cognition Level of Alertness Alert Orientation Name,Age,Birthday,Month,Date, Year,Day of Week,Place, Situation Language Function Ability No Deficits Noted Safety Awareness Decreased Safety Awareness Memory Description No Deficits Noted Comments Cues for hand placement with transfers Gross Range of Motion Upper Extremity ROM Assessment Within Functional Limits Lower Extremity ROM Assessment Left Impaired Impairments Minimal HS and AP on the left Strength Upper Extremity Strength Assessment Within Functional Limits Lower Extremity Strength Assessment Left Impaired Comments Strength Comments RLE normal and left ankle appears functional: deferred left knee and hip post fracture and surgery Other Assessments Other Other Assessments LLE edema changes noted M6 PT-IP Treatment Start: 11/10/23 10:46 Freq: NEEDED Status: Active Protocol: Document 11/13/23 10:45 JG (Rec: 11/13/23 11:52 JG [id number]) Physical Therapy Treatment Exercises Exercises Ankle Pumps Education Education Provided Safety Other Treatments Other Treatment Performed Instructed pt on how/when to perform seated marches and LAQ M7 PT-IP Assessment and Plan Start: 11/10/23 10:46 Freq: NEEDED Status: Active Protocol: Document 11/13/23 10:45 JG (Rec: 11/13/23 11:52 JG [id number]) PT Summary Assessment and Plan Potential Rehabilitation Potential Good Summary Impairments Pain,ROM,Strength,Balance, Coordination,Bed Mobility, Transfers,Gait,Activity Tolerance Progress Towards Goals Progressing Toward Goals Assessment Summary Aneesh is making progress with his mobility. He continues to require less assistance with transfers and gait. Brother present for caregiver training for steps. Pt mentioned that they would perfer using the SPC to enter/exit home; however, pt had more stability and less assistance required when using FWW. Current plan per rounds and pt is that pt will receive his mother's RW and SPC on Tuesday and will d/ c back to [facility] with brother assistance. Goals Bed Mobility Goal Independent Transfer Goal Independent,Front Wheeled Walker Gait Goal Independent,Front Wheel Walker Gait Distance 150 Other Goals up/down 2 steps mod I Days to Meet Goals 3 Frequency of Treatment Frequency Of Treatment Once a Day Treatment Plan Physical Therapy Treatment Plan Bed Mobility Training,Transfer Training,Gait Training, Therapeutic Exercise,Balance Retraining,Discharge Planning, Coordination Retraining Other Recommendations and Next Treatment Focus on gait tolerance and Focus proper AD when performing stair training Weight Bearing Status Weight Bearing Status Weight Bear as Tolerated Recommendations To Nursing Amount of Assist Needed Standby Assistance,1 Person Assist Discharge Recommendations PT Discharge Recommendations Home with Assistance Equipment Needed for Home Before FWW and SPC will arrive on Discharge Tuesday Transportation Needs at Discharge Private Vehicle
--- NOTE | 2023-11-13 14:47 | P.PN_ITS ---
Subjective Subjective Date Patient Seen: 11/13/23 Time Patient Seen: 14:48 Interval history: He notes he is doing reasonably well. He is up sitting in his chair. He has been working with physical therapy. His family is coming on Tuesday. Exam Vital Signs (past 8 hours): - 11/13/23 07:00 11/13/23 08:47 11/13/23 09:30 Temperature 98.4 F Pulse Rate 93 H Respiratory Rate 19 Blood Pressure 136/79 Pulse Oximetry 98 98 Oxygen Delivery Method Room Air Room Air Oxygen Flow Rate 0 Oxygen Delivery Method Room Air Oxygen Flow Rate 0 Narrative Exam Narrative: He is up sitting in a chair has minimal pain with range of motion in his hip his dressings are dry his calves are soft distally and he has minimal leg swelling. Objective Labs 11/13/23 08:50 11/13/23 08:50 Labs: Laboratory Results - last 24 hr 11/13/23 08:50 WBC 5.1 RBC 3.23 L Hgb 11.2 L Hct 33.0 L MCV 102.4 H MCH 34.7 H MCHC 33.9 RDW 14.1 Plt Count 257 Sodium 135 L Potassium 4.4 Chloride 102 Carbon Dioxide 30 BUN 12 Creatinine 0.72 Estimated GFR > 60 BUN/Creatinine Ratio 16.7 Glucose 114 H Calcium 9.0 PFSH Social History household members: family Smoking Status: Current every day smoker alcohol intake: current Assessment & Plan Post-op Postoperative Procedures: Procedures Operation Date: 11/09/23 15:15 Actual Procedure Side Surgeon p Intramedullary Nailing Femur Left Alexandru Downing MD Postoperative day: 4 Postoperative status: doing well Postoperative plan: routine post-op care Postoperative plan narrative: He is doing well postoperatively. I encouraged him to work on progressive range of motion and strengthening. Told him to take advantage of physical therapy and nursing well he is here and anticipate discharge [facility] on Tuesday. Follow up with Dr. Downing or ZACHARY in 1-2 weeks. Quality VTE Deep Vein Thrombosis/Pulmonary Embolism Present on Admission: No
--- NOTE | 2023-11-13 15:47 | CM.DPC ---
DCP Cont. Reviewed EMR and team rounds for status updates. [facility] Pt will likely d/c back to [facility] w/. Per Hospitalist, will likely be ready for d/c on Tuesday. Likely will need a taxi for transport back.
[2023-11-13 20:12] VITALS: BP 140/79; PULSE 85; RESP 17; TEMP 36.7; O2SAT 100
[2023-11-13] MEDS: SENNOSIDES 8.6 MG TABLET 17.2 MG PO (20:31)
[2023-11-14] MEDS: ACETAMINOPHEN 325 MG TABLET 650 MG PO ×3 (00:14→17:00)
[2023-11-14] MEDS: OXYCODONE IR 5 MG TABLET 10 MG PO ×5 (04:00→21:04)
[2023-11-14] MEDS: PANTOPRAZOLE DR 40 MG TABLET PO (06:00)
[2023-11-14 07:00] VITALS: BP 133/83; PULSE 87; RESP 16; TEMP 36.3; O2SAT 97
[2023-11-14] MEDS: ASPIRIN EC 81 MG TABLET PO ×2 (08:09→21:04)
[2023-11-14] MEDS: NICOTINE 14 PATCH 14 MG TOP (08:09)
[2023-11-14] MEDS: cephALEXin 250 MG CAPSULE 500 MG PO ×3 (08:10→21:04)
[2023-11-14] MEDS: SODIUM CHLORIDE 0.9% FLUSH 10 ML IV (08:10)
--- NOTE | 2023-11-14 09:01 | OT.IP.TRT ---
Current Diagnoses Fracture of unspecified part of neck of left femur, initial encounter for closed fracture (11/08/23) Surgery Performed Operation Date: 11/09/23 15:15 Actual Procedures p Intramedullary Nailing Femur(Left) - Alexandru Downing MD Occupational Therapy Treatment Note M2 OT-IP Current Condition Start: 11/11/23 13:30 Freq: Status: Active Protocol: Document 11/11/23 13:30 CCC (Rec: 11/11/23 13:41 [facility] [id number]) Occupational Therapy Current Condition Current Condition Evaluation Date 11/11/23 Treatment Diagnosis S/P fall , L hip fx IM nailing Diagnosis Onset Date 11/08/23 M3 OT- IP Subjective and Pain Start: 11/11/23 13:30 Freq: Status: Active Protocol: Document 11/14/23 11:42 CGR (Rec: 11/14/23 11:48 CGR [id number]) OT- Subjective Occupational Therapy Visit Type Type Treatment Note Visit Start Time 08:52 Visit Stop Time 09:01 Notes Pt needed encouragement to participate. OT Pain Assessment Pain When Pain Assessed At Rest Pain Present Pain Present Denied Pain M4 OT- IP ADL's Start: 11/11/23 13:30 Freq: Status: Active Protocol: Document 11/14/23 11:42 CGR (Rec: 11/14/23 11:48 CGR [id number]) OT [id number] Comments OT Self-Feeding Comments not meal time OT ADL-Grooming Comments OT Grooming Comments pt decliend to perform OT ADL-Oral Care Comments Oral Care Comments pt declined to perform OT ADL-Dressing General Eval Upper Body Dressing Ability Independent Areas Needing Assistance Socks Comments OT Dressing Comments Pt doffed and donned sock to the LLE without AD or difficulty sitting EOB OT ADL-Toileting General Evaluation Toileting Ability Independent Comments OT Toileting Comments pt demonstrated his ability to get on and off the toilet. OT ADL-Bathing Comments OT Bathing Comments not performed M5 OT- IP IADL's Start: 11/11/23 13:30 Freq: Status: Active Protocol: Document 11/11/23 13:30 CCC (Rec: 11/11/23 13:41 [facility] [id number]) OT-Instrumental Activities of Daily Living Deficits IADL Deficits Identified Deficits Home Safety Awareness Awareness of Need for Assistance at Home Good Awareness Ability to Problem Solve Emergency Able to Problem Solve Situations Home Safety Comments At this time pt will benefit from assist with some ADL and most IADL needs. M6 OT- IP Functional Cognition Start: 11/11/23 13:30 Freq: Status: Active Protocol: Document 11/11/23 13:30 [facility] (Rec: 11/11/23 13:41 [facility] [id number]) Cognitive Factors Limiting Selfcare Function Cognitive Ability Level of Alertness Alert Patient Orientation Name,Age,Birthday,Month,Date, Year,Day of Week,Place, Situation Attention Span Ability Capable of Focused Attention, Capable of Sustained Attention Ability to Follow Commands Able to Follow One Step Commands Cognitive Comments Cognitive Assessment Comments Pt able to follow commands for ADL and mobility needs. OT- Vision and Hearing OT- Hearing Assessment OT- Hearing Assessment WFL OT- Vision Assessment Visual Acuity Glasses All The Time,Glasses For Reading Visual Attentiveness WFL Occular Pursuits WFL M7 OT- IP Mobility and Balance Start: 11/11/23 13:30 Freq: Status: Active Protocol: Document 11/14/23 11:42 CGR (Rec: 11/14/23 11:48 CGR [id number]) OT- Bed Mobility Assessment Supine to Sit Supine to Sit Assist Independent,Head of Bed Elevated Scooting Scooting to Edge of Bed Independent OT-Transfer Assessment Sit to and From Stand Sit to and from Stand Independent Transfers Transfer Ability Independent Technique Transfer Destination Bed,Toilet Transfer Technique Stand Step Pivot Comments Mobility Comments Pt declined to sit up in chiar . OT- Gait Assessment Gait Gait Assistance Required: Independent Assistive Devices Assistive Device Gait Belt,Front Wheeled Walker OT- Balance Assessment Sitting Balance and Reactions Static Sitting Balance Ability Normal Dynamic Sitting Balance Ability Normal M8 OT- IP Objective Assessments Start: 11/11/23 13:30 Freq: Status: Active Protocol: Document 11/11/23 13:30 [facility] (Rec: 11/11/23 13:41 [facility] [id number]) OT Gross Range of Motion Upper Extremity Range of Motion Assessment Within Functional Limits OT Strength Upper Extremity Strength Assessment Within Functional Limits Comments Strength Comments Pt missing part of left 5th digit. M9 OT- IP Assessment and Plan Start: 11/11/23 13:30 Freq: Status: Active Protocol: Document 11/14/23 11:42 CGR (Rec: 11/14/23 11:48 CGR [id number]) OT Summary Assessment and Plan Potential Rehabilitation Potential Excellent Analytic Complexity at Evaluation Low Summary OT Impairments Pain,Strength,Balance, Functional Mobility,Dressing, Toileting,Bathing,Toilet Transfers,Shower Transfers, Activity Tolerance Progress Towards Goals Slow Progress due to Pain,Slow Progress due to Medical Issues,Slow Progress due to Activity Tolerance Assessment Summary Pt has progressed with his mobility and is now IND for mobility and ADLs. Pt appears ready for dicharge home with family support. Goals Grooming Goal Independent Dressing Goal Independent,Stake Driver,Sock Aid Toileting Goal Independent Bathing Goal Independent Toilet Transfer Goal Independent Shower Transfer Goal Independent Days to Meet Goals 20 Frequency of Treatment Frequency Of Treatment Once a Day Treatment Plan OT Treatment Plan ADL Training,Functional Mobility,Patient/Family Education,Discharge Planning Discharge Recommendations OT Discharge Recommendations SNF Rehab Transportation Needs at Discharge Wheelchair/Cabulance
--- NOTE | 2023-11-14 13:15 | PM.PNPO.1 ---
Subjective Subjective Date Patient Seen: 11/14/23 Time Patient Seen: 13:15 Interval history: Pt sitting up in bed, denies pain in left leg. Plan is for him to d/c home w/ brother and parents who are coming in from [place]; they will not be available until tomorrow. Exam Vital Signs (past 8 hours): - 11/14/23 07:00 11/14/23 07:00 Temperature 97.4 F L Pulse Rate 87 Respiratory Rate 16 Blood Pressure 133/83 Pulse Oximetry 97 97 Oxygen Delivery Method Room Air Oxygen Flow Rate 0 0 Oxygen Delivery Method Room Air Oxygen Flow Rate 0 Narrative Exam Narrative: 4/5 strength in hip flexors, quadriceps, hamstrings; 5/5 DF, PF, EHL on left. Sensation to light touch intact throughout LLE, calf soft and compressible. Dressings CDI. Objective Labs 11/13/23 08:50 11/13/23 08:50 PFSH Social History household members: family Smoking Status: Current every day smoker alcohol intake: current Assessment & Plan Post-op Assessment and plan (1) Closed hip fracture: Assessment and Plan narrative: 1) Weightbearing as tolerated to left leg. 2) Aspirin 81mg BID x 4 weeks for VTE prophylaxis. 3) Bactrim DS BID x total of 28 doses for infection prevention. 4) Pain control, disposition per hospitalist service. 5) F/u in ortho office in 2 weeks for wound check, in 6 weeks w/ Dr Downing for repeat imaging. Postoperative Procedures: Procedures Operation Date: 11/09/23 15:15 Actual Procedure Side Surgeon p Intramedullary Nailing Femur Left Alexandru Downing MD Postoperative day: 5 Quality VTE Deep Vein Thrombosis/Pulmonary Embolism Present on Admission: No
--- NOTE | 2023-11-14 14:25 | PM.PN.1 ---
Subjective Subjective Interval history: Summary: He was admitted with a hip fracture, status post ORIF. Difficulty getting approval and acceptance to retirement facility. He is doing well. He is good pain control. He is able to ambulate with physical therapy. His ensure did not preop for a facility and he was not accepted to a facility. He lives in a motel nearby with his brother. He was going to the bathroom well and has no issues with constipation. The plan is that his family has a sibling equipment that we will be available Tuesday and he will likely just discharge back to his motel with a walker and other DME on Tuesday. He will continue work with physical therapy until then. Exam Vital Signs (past 8 hours): - 11/14/23 07:00 11/14/23 07:00 Temperature 97.4 F L Pulse Rate 87 Respiratory Rate 16 Blood Pressure 133/83 Pulse Oximetry 97 97 Oxygen Delivery Method Room Air Oxygen Flow Rate 0 0 Oxygen Delivery Method Room Air Oxygen Flow Rate 0 Narrative Exam Narrative: NAD, alert and oriented. Fluent speech. Lungs are clear, normal rate and effort. Heart is regular, no murmur gallop or rub. Abdomen is soft, non distended. Extremities are free of edema. Left hip looks great. There is no swelling or hematoma. Wounds are dressed. Objective Labs 11/13/23 08:50 11/13/23 08:50 [facility] Social History household members: family Smoking Status: Current every day smoker alcohol intake: current Assessment & Plan Assessment & Plan narrative: 1. Traumatic left intertrochanteric femure fracture after a fall from a ladder. Present on admission and active. - s/p ORIF. - improving with PT/OT 2. Alcohol use. Stable and no evidence of withdrawal. -No evidence of withdrawal or intoxication. Monitor for now. Add vitamin B1 3. Smoker. Nicotine dependence. Stable. -Advised to quit smoking and initiate nicotine patch PLAN: -Bactrim BID 2 Weeks. -ASA BID 6 Weeks, DVT prophylaxis. -PT/OT/OOB RICARDO: 11/14, home to [facility] in [place] where he lives with brother. Family has assembling walker another needed equipment. Equipment should be available by Tuesday. He is full resuscitation. Inpatient status. Quality VTE Deep Vein Thrombosis/Pulmonary Embolism Present on Admission: No
--- NOTE | 2023-11-14 14:34 | CM.DPC ---
DCP COnt: Per MD and Ortho, pt likely stable for discharge today but pt currently does not have a safe d/c plan until tomorrow 11/14 when family arrives from out of town to assist and bring DME. Per PT, recommending safe d/c home with assist and HH vs outpt PT. Per Rehana at [facility], they reviewed pt's referral and willing to accept his [employer] insurance and accept knowing pt currently does not have PCP. SCAR met bedside with pt and his brother and explained role and discussed possible discharge today and that pt may not meet medical criteria to remain hospital level of care. Pt states his parents cannot arrive until tomorrow and they are brining DME (walker, cane, raised seat, etc) for him to use and provide assist at d/c. SW discussed other options for getting DME and assist for today and brother confirms that he cannot assist pt at d/c due to his recent heart surgery and physical limitations. SW also received a call from pt's mother [phone] and pt gave permission to coordinate with her and she also confirms that they will arrive tomorrow from [place] about 1100 and will transport pt home and assist. SW updated pt that [facility] has accepted his referral and pt currently not sure he wants HH because I don't think I want a stranger coming into our place but did not want SW to cancel the referral yet and wants to think about it. No F2F done yet as pt still deciding if he's agreeable with HH. 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 SW to follow if pt agreeable to [facility] or wants outpt PT. CHRISSIE Stoddard
--- NOTE | 2023-11-14 15:22 | PT.IPTN ---
Addendum entered and electronically signed by Beverly Iniguez PT 11/14/23 15:23: PT provides direct superv during SPT treatment Original Note: Current Diagnoses Fracture of unspecified part of neck of left femur, initial encounter for closed fracture (11/08/23) Surgery Performed Operation Date: 11/09/23 15:15 Actual Procedures p Intramedullary Nailing Femur(Left) - Alexandru Downing MD Physical Therapy Treatment Note M2 PT-IP Current Condition Start: 11/10/23 10:46 Freq: NEEDED Status: Active Protocol: Document 11/10/23 12:20 JG (Rec: 11/10/23 13:19 JG [id number]) Physical Therapy Current Condition Current Condition Evaluation Date 11/10/23 Treatment Diagnosis Fall, left hip fracture and IM nailing M3 PT-IP Subjective Start: 11/10/23 10:46 Freq: NEEDED Status: Active Protocol: Document 11/14/23 14:15 JG (Rec: 11/14/23 14:48 JG [id number]) Subjective Physical Therapy Visit Type Type Treatment Note Visit Start Time 14:15 Visit Stop Time 14:32 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 Physical Therapy Visit Comments Patient Comments Pt stated that he is ready for PT upon PT arrival Therapy Pain Assessment Pain When Pain Assessed At Rest Pain Present Pain Present Pain Reported Location Left hip Intensity 4 Scale Used Numeric (0 - 10) Description Sharp,Stabbing Pain Behaviors Guarding Pain Management Techniques Timing of Activity with Medications M4 PT-IP Mobility and Gait Start: 11/10/23 10:46 Freq: NEEDED Status: Active Protocol: Document 11/14/23 14:15 JG (Rec: 11/14/23 14:48 JG [id number]) PT-Transfer Assessment Sit to and From Stand Sit to and from Stand Standby Assistance Equipment Transfer Assistive Device Bed Rail,Gait Belt Orthotic/Prosthetic Devices or Brace: No Transfers Transfer Destination Chair Transfer Technique Ambulation Transfer Ability Level of Assist Standby Assistance,Use of Upper Extremities Comments Mobility Comments Pt was positioned in chair upon PT arrival. Pt is agreeable to PT. Gait Assessment Gait Gait Assistance Required: Standby Assistance Distance (Feet) 150 Able to Maintain Weight Bearing Status Yes During Gait Assistive Devices Assistive Device Gait Belt,Front Wheeled Walker Orthotic/Prosthetic Devices or Brace: No Gait Deviations General Gait Pattern Decreased Stride Length, Decreased Feet Clearance, Flexed Trunk Factors Limiting Gait Function Factors Limiting Gait Function Decreased Activity Tolerance, Decreased Strength,Limited Range of Motion,Pain,Poor Balance Comments Gait Comments Pt ambulated 150'x2 with a step through gait pattern and FWW. Gait pattern is improving and he is demonstrating more on heel and following through and pushing off with toes. Pt gait trains with SPC a few feet with stair training with cane in right UE and more unsteadiness with cane than with RW. Stair Climbing Assessment Evaluation Level of Assist On Stairs Contact Guard Assistance, Minimal Assistance,1 Person Assistance Devices Stair Climbing Assistive Devices Straight Cane Technique/Endurance Stair Climbing Direction Ascend and Descend Stair Climbing Technique Step to Step Number of Steps Climbed 3 Stair Climbing Set # Repetitions (reps) 2 Comments Stair Climbing Comments Pt performed first repetition of steps using SPC right hand and requires CGA. Pt attempted to use PT's hand and no use of railing for second repetition. Pt's had pain shoot up his left LE when attemping the first step on desending and then switched to SPC for remainder of activity . More steady with use of SPC. PT-Balance Assessment Sitting Balance and Reactions Static Sitting Balance Ability Normal Dynamic Sitting Balance Ability Good Standing Balance and Reactions Static Standing Balance Ability Good Dynamic Standing Balance Ability Fair Device Used FWW/SPC M5 PT-IP Objective Assessments Start: 11/10/23 10:46 Freq: NEEDED Status: Active Protocol: Document 11/10/23 12:20 JG (Rec: 11/10/23 13:19 JG [id number]) Orientation Orientation/Cognition Level of Alertness Alert Orientation Name,Age,Birthday,Month,Date, Year,Day of Week,Place, Situation Language Function Ability No Deficits Noted Safety Awareness Decreased Safety Awareness Memory Description No Deficits Noted Comments Cues for hand placement with transfers Gross Range of Motion Upper Extremity ROM Assessment Within Functional Limits Lower Extremity ROM Assessment Left Impaired Impairments Minimal HS and AP on the left Strength Upper Extremity Strength Assessment Within Functional Limits Lower Extremity Strength Assessment Left Impaired Comments Strength Comments RLE normal and left ankle appears functional: deferred left knee and hip post fracture and surgery Other Assessments Other Other Assessments LLE edema changes noted M6 PT-IP Treatment Start: 11/10/23 10:46 Freq: NEEDED Status: Active Protocol: Document 11/13/23 10:45 JG (Rec: 11/13/23 11:52 KELIN [id number]) Physical Therapy Treatment Exercises Exercises Ankle Pumps Education Education Provided Safety Other Treatments Other Treatment Performed Instructed pt on how/when to perform seated marches and LAQ M7 PT-IP Assessment and Plan Start: 11/10/23 10:46 Freq: NEEDED Status: Active Protocol: Document 11/14/23 14:15 KELIN (Rec: 11/14/23 14:48 KELIN [id number]) PT Summary Assessment and Plan Potential Rehabilitation Potential Good Summary Impairments Pain,ROM,Strength,Balance,Gait ,Activity Tolerance Progress Towards Goals Progressing Toward Goals Assessment Summary Pt presents with better gait pattern with RW today and reports less discomfort and has less UE WB through the RW with gait. He con't to prefer SPC for stair training and performed again today with CGA . Pt will require CGA at home and already practiced with brother last date. Goals Bed Mobility Goal Independent Transfer Goal Independent,Front Wheeled Walker Gait Goal Independent,Front Wheel Walker Gait Distance 150 Other Goals up/down 2 steps mod I Days to Meet Goals 1 Frequency of Treatment Frequency Of Treatment Once a Day Treatment Plan Physical Therapy Treatment Plan Transfer Training,Gait Training,Therapeutic Exercise, Balance Retraining,Discharge Planning Weight Bearing Status Weight Bearing Status Weight Bear as Tolerated Recommendations To Nursing Amount of Assist Needed Standby Assistance Discharge Recommendations PT Discharge Recommendations Home with Assistance Equipment Needed for Home Before FWW and SPC will arrive on Discharge Tuesday Transportation Needs at Discharge Private Vehicle
[2023-11-14 19:55] VITALS: BP 137/78; PULSE 99; RESP 16; TEMP 36.4; O2SAT 99
[2023-11-14] MEDS: SENNOSIDES 8.6 MG TABLET 17.2 MG PO (21:04)
[2023-11-14] MEDS: DOCUSATE 100 MG CAPSULE PO (21:04)
[2023-11-15] MEDS: OXYCODONE IR 5 MG TABLET 10 MG PO ×3 (00:54→10:26)
[2023-11-15] MEDS: PANTOPRAZOLE DR 40 MG TABLET PO (06:11)
[2023-11-15 07:00] VITALS: BP 120/84; PULSE 92; RESP 15; TEMP 36.4; O2SAT 97
[2023-11-15] MEDS: ASPIRIN EC 81 MG TABLET PO (08:09)
[2023-11-15] MEDS: DOCUSATE 100 MG CAPSULE PO (08:09)
[2023-11-15] MEDS: cephALEXin 250 MG CAPSULE 500 MG PO (08:09)
[2023-11-15] MEDS: NICOTINE 14 PATCH 14 MG TOP (08:13)
--- NOTE | 2023-11-15 08:21 | P.DS_ITS ---
History of Present Illness History of Present Illness Date Patient Seen: 11/15/23 Time Patient Seen: 08:22 Chief complaint: Fall, L Hip Pain Narrative: Per admitting provider, 58-year-old male seen in evaluation for his left hip. He was approximately 6 ft on a ladder when he fell. He says he was helping a friend clean a RV. 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 He denies any drug use other than marijuana. He has had pain in his left hip since he fell. The pain is worsened by any movement and partially alleviated by rest. It does not radiate. It has been present since the time of injury. He was evaluated and determined to be medically appropriate for proceeding with surgery today. Discharge Providers Provider Date of admission: 11/08/23 18:56 Discharge Date: 11/15/23 Primary care physician: Ricky Wong MD Consults: 11/09/23 15:21 Consult to Orthopedic Surgery Routine Comment: Consulting Provider: Alexandru Downing Reason for consultation: Hip fracture Has provider been notified: Yes 11/09/23 17:39 Consult to Discharge Planning Routine Comment: Consult to Physical Therapy Evaluate & Treat Comment: Physician Instructions: Evaluate and Treat 11/11/23 12:28 Consult to Occupational Therapy Evaluate & Treat Comment: Physician Instructions: Evaluate and treat Discharge provider: Stephen Ennis DO Summary Hospital Course Discharge Diagnosis: 1. Traumatic left intertrochanteric femur fracture after a fall from a ladder. Present on admission and active. 2. Alcohol use. Stable and no evidence of withdrawal. 3. Smoker. Nicotine dependence. Stable. Hospital Course: This is a 58 year old male who was admitted with a left femur after a fall from a ladder. He had ORIF with orthopedic surgery, and did require some assistance initially. There was difficulty in approving SNF placement after therapy evaluations, case management worked on disposition. Ultimately patient discharge home to a hotel when proper equipment was obtained. He had no evidence for alcohol withdrawal over the course of his stay here. Time Spent with Patient Time spent: Less than 30 minutes Exam Vital Signs (past 8 hours): Oxygen Delivery Method Room Air Oxygen Flow Rate 0 Narrative Exam Narrative: NAD, alert and oriented. Fluent speech. Lungs are clear, normal rate and effort. Heart is regular, no murmur gallop or rub. Abdomen is soft, non distended. Extremities are free of edema. Left hip looks great. There is no swelling or hematoma. Wounds are dressed. Objective Labs 11/13/23 08:50 11/13/23 08:50 PFSH Social History household members: family Smoking Status: Current every day smoker alcohol intake: current Discharge Plan Discharge Plan Patient Disposition: Home Provider Discharge Comment: You were admitted to the hospital with a hip fracture after a fall from a ladder. Continue antibiotic prophylaxis, DVT prophylaxis as recommended by orthopedic provider. Continue to trial weaning off oxycodone at home, continue to use tylenol as needed as well for minor pain. Follow up with orthopedic surgery clinic as noted below. Discharge orders & Medications Prescriptions: New aspirin 81 mg Tablet,Delayed Release (Dr/Ec) 81 mg PO BID 36 Days Qty: 72 0RF cephalexin 250 mg Capsule 500 mg PO TID 8 Days Qty: 48 0RF oxycodone 5 mg tablet 5 - 10 mg PO Q6H PRN (Reason: pain) 7 Days Qty: 30 0RF Follow up/Referrals: Ricky Wong MD [Primary Care Provider] - Alexandru Downing MD [Physician] - 11/23/23 1:00 pm (Appt: 11/22 with Noreen stein check in at 1230 for 1:00 appointment at [facility] for wound check appt:12/21 check in at 3:10 for a 3:[address] Downing [facility] and [facility] ) Diet/Activity/Treatments Diet: Diet as Tolerated and Regular Activity: Weightbearing as tolerated. Visit Report/Discharge Packet Stand Alone Forms: Patient Portal/API, Stroke Signs & Symptoms Discharge Data Primary Care Provider: Ricky Wong Quality VTE Deep Vein Thrombosis/Pulmonary Embolism Present on Admission: No
--- NOTE | 2023-11-15 08:33 | CM.DPC ---
DCP Cont. Reviewed EMR. Pt is being medically cleared for home d/c today at 11:00am. Faxed F/F form and order to [facility]. No further DCP needs indicated at this time.
--- NOTE | 2023-11-15 09:14 | DIET.CONS2 ---
Dietary Inpatient Consultation Note Admission Date: 11/08/2023 18:56 58y M admitted for hip fx. Nutrition screened for LOS. Chart reviewed, adequate po intakes and nutritional status. No nutritional interventions needed at this time. F/u prn. Diet: 11/09/23 Dinner General (Regular) Diet Diet Modifications: Food Texture: Level 7 - Regular Liquid Consistency: Level 0 - Thin Nutrition Percent Meal Consumed 100% 11/14/23 18:00 Percent Meal Consumed 75% 11/14/23 13:53 Percent Meal Consumed 50% 11/14/23 10:14 Percent Meal Consumed 100% 11/13/23 18:38 Percent Meal Consumed 100% 11/13/23 13:02 Percent Meal Consumed 75% 11/13/23 09:15 Electronically Signed by: Bella Yeung 11/15/23 09:14 Clinical Dietitian [address] [address]
--- NOTE | 2023-11-15 12:19 | PC.NURSE ---
Discharge Note Patient A&O, VSS, RA, no complaints of pain/discomfort. Discharge packet reviewed with patient, all questions/concerns addressed. No PIV access. Patient able to dress self and pack all belongings with minimal assistance. Patient taken down via wheelchair to POV. Patient reminded to warehouse order picker prescription at preferred pharmacy.
--- NOTE | 2023-11-25 06:59 | PC.NURSE ---
late entry : pt was medicated with oxycodone 5 mg tablet for complaints of 5/10 pain. forgot to save entry and it timed out!
== END 2023-11-15 11:30 | disposition home health service (06) | DRG 308 ==
LOC: ED 16:55 → AC 18:56 → ICU 19:49 → AC 11-09 16:35
PROVIDERS: Hospitalist; Internal Medicine; Orthopaedic Surgery Adult Reconstructive Orthopaedic Surgery; Admitting Provider Internal Medicine; Emergency Provider Emergency Medicine; PCP Family Medicine; Referring Provider Emergency Medicine; Visit Provider Internal Medicine
PROC: 0QS706Z Reposition Left Upper Femur with Intramedullary Internal Fixation Device, Open Approach (ICD-10-PCS; CPT 27245; principal; 2023-11-09 15:15)
DX: S72.142A Displaced intertrochanteric fracture of left femur, initial encounter for closed fracture (principal); S00.83XA Contusion of other part of head, initial encounter; F10.90 Alcohol use, unspecified, uncomplicated; F17.210 Nicotine dependence, cigarettes, uncomplicated; W11.XXXA Fall on and from ladder, initial encounter
CPT/HCPCS: 36415; 70450; 71045; 72125; 73502; 73552; 76000; 80048; 80053; 83735; 85025; 85027; 85610; 85730; 86850; 86900; 86901; 87797; 96374; 97110; 97116; 97161; 97165; 97530; 97535; 99284; 99285; J0171; J0690; J1100; J1170; J2250; J2405; J2704; J3010